=== PATIENT | female | born 1975 | race Caucasian/White ===

== ENCOUNTER 2016-04-29 10:48 | Emergency (ER) | payer SELFPAY ==
[~2016-04-29] VITALS: Ht 157.5 cm; Wt 105.0 kg
[~2016-04-29 10:48] MED LIST: NAPR500 PO; ZOFR4TAB3 PO
[2016-04-29 10:51] VITALS: BP 159/72; PULSE 56; RESP 14; TEMP 98; O2SAT 98
--- NOTE | 2016-04-29 11:16 | PD ---
HPI Chief Complaint: Flank/Kidney Pain Time Seen by Provider: 11:10 Travel History International Travel<30 days: No Contact w/Intl Traveler<30days: No Traveled to known affect area: No History of Present Illness HPI Patient is a 40-year-old female presenting to the emergency room for evaluation of right back pain that radiates around to her right flank, and down her right leg. Patient states the pain started a month ago however this morning she's had 2 episodes of diarrhea and has felt nauseated. The patient reports frequency, she denies any dysuria, vaginal discharge or odor. She denies any fevers, chills, shortness of breath, chest pain. Patient denies any new activities, injury, trauma to cause back pain. Patient has a history of cholecystectomy as well as laparoscopic surgery for uterine fibroids in the past. Patient rates her pain a 5 out of 10. PFSH Past Medical History Arthritis: Yes Blood Disorders: No Cerebrovascular Accident: Yes (age 25. 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, dilaudid, last use x3 YRS AGO: 2010) Allergies-Medications (Allergen,Severity, Reaction): Coded Allergies: No Known Allergies (Verified , 04/29/16) Reported Meds & Prescriptions Reported Meds & Active Scripts Active Naprosyn (Naproxen) 500 Mg Tab 500 Mg PO BID PRN Zofran ODT (Ondansetron HCl) 4 Mg Tab 4 Mg PO Q6 PRN May substitute, non-ODT form Review of Systems Except as stated in HPI: all other systems reviewed are Neg General / Constitutional: No: Fever, Chills HENT: No: Headaches Cardiovascular: No: Chest Pain or Discomfort Respiratory: No: Shortness of Breath Gastrointestinal: Positive: Nausea, Diarrhea (2 episodes today), Abdominal Pain (right lower quadrant), No: Vomiting Genitourinary: Positive: Frequency, No: Dysuria, Discharge, Vaginal Bleeding Musculoskeletal: Positive: Pain Physical Exam Narrative GENERAL: Obese, well-developed, alert female. Resting comfortably in no acute distress. SKIN: Warm and dry. HEAD: Atraumatic. Normocephalic. EYES: Pupils equal and round. No scleral icterus. No injection or drainage. ENT: No nasal bleeding or discharge. Mucous membranes pink and moist. NECK: Trachea midline. No JVD. CARDIOVASCULAR: Regular rate and rhythm. No murmur appreciated. RESPIRATORY: No accessory muscle use. Clear to auscultation. Breath sounds equal bilaterally. GASTROINTESTINAL: Abdomen soft, mildly tender in right lower quadrant, no rebound, no guarding, nondistended. Hepatic and splenic margins not palpable. Positive bowel sounds. MUSCULOSKELETAL: No obvious deformities. No clubbing. No cyanosis. No edema. Tenderness to palpation in right lower back and paraspinal musculature and lumbar region. Right leg left elicits pain and lower back. The pedal pulses, brisk less than 3 second capillary refill. NEUROLOGICAL: Awake and alert. No obvious cranial nerve deficits. Motor grossly within normal limits. Normal speech. PSYCHIATRIC: Appropriate mood and affect; insight and judgment normal. Data Data Last Documented VS Vital Signs Date Time Temp Pulse Resp B/P Pulse Ox O2 Delivery O2 Flow Rate FiO2 04/29/16 10:51 98.0 56 14 159/72 98 Room Air Orders Complete Blood Count With Diff (04/29/16 11:09) Comprehensive Metabolic Panel (04/29/16 11:09) Lipase (04/29/16 11:09) Urinalysis - C+S If Indicated (04/29/16 11:09) [facility] Medical Decision Making Medical Screen Exam Complete: Yes Emergency Medical Condition: Yes Interpretation(s) Vital Signs Date Time Temp Pulse Resp B/P Pulse Ox O2 Delivery O2 Flow Rate FiO2 04/29/16 10:51 98.0 56 14 159/72 98 Room Air Differential Diagnosis Appendicitis versus gastroenteritis versus sciatica versus UTI versus pyelonephritis versus other Narrative Course Patient is a 40-year-old female presenting with 1 month of right lower back pain that radiates down her right leg and wraps around to the right lower quadrant. New symptoms presenting this morning are nausea and diarrhea. Labs ordered and pending, urinalysis ordered. Patient has a chronic history of back pain, physical presentation appears consistent with sciatica however due to patient's complaint of frequency and flank pain urinalysis is ordered and pending. Patient's vital signs are stable. Care of patient will be assumed by provider in the medical pod when bed is available. Oliva Buchanan Apr 29, 2016 11:16
--- NOTE | 2016-04-29 11:33 | PD ---
Physical Exam Date Seen by Provider: Apr 29, 2016 Time Seen by Provider: 11:30 Narrative Patient was initially seen by ANH Dempsey. Please see her note for those details. 40-year-old female with PMH of chronic back pain, endometriosis, GERD, kidney stones presents to the ED for evaluation of one month history of right-sided flank pain. Patient rates the pain 5/10, described as constant, somewhat improved by drinking lemon juice. Accompanied by nausea. Patient denies vomiting. She sought treatment today due to 2 episodes of watery, nonbloody diarrhea. The patient endorses increased urinary urgency and frequency. She denies fevers, chills, dysuria, hematuria. She also complains of chronic right- sided back pain, radiating down the right leg. No alleviating or exacerbating factors reported. She denies numbness, tingling, weakness of the extremities. LMP 04/18/16, patient denies risk of . GENERAL: Well-nourished, well-developed, obese white female in no acute distress. SKIN: Warm and dry. HEAD: Normocephalic. EYES: No scleral icterus. No injection or drainage. NECK: Supple, trachea midline. No JVD or lymphadenopathy. CARDIOVASCULAR: Regular rate and rhythm without murmurs, gallops, or rubs. RESPIRATORY: Breath sounds clear and equal bilaterally. No accessory muscle use. GASTROINTESTINAL: Abdomen soft, protuberant, nondistended. Mildly tender to deep palpation of the right flank and right upper quadrant. Mild suprapubic tenderness to deep palpation. Unable to palpate liver or spleen edge. MUSCULOSKELETAL: No cyanosis, or edema. Strength 5/5 in dorsiflexion, plantar flexion, knee and hip flexion. No back pain elicited with straight leg raise. 2+ DP pulses. BACK: No obvious deformity. No CVA tenderness. Tender to palpation of the right -sided paraspinal musculature in the lumbar region. Data Data Last Documented VS Vital Signs Date Time Temp Pulse Resp B/P Pulse Ox O2 Delivery O2 Flow Rate FiO2 04/29/16 11:40 58 16 137/81 99 Room Air 04/29/16 10:51 98.0 Orders Complete Blood Count With Diff (04/29/16 11:09) Comprehensive Metabolic Panel (04/29/16 11:09) Lipase (04/29/16 11:09) Urinalysis - C+S If Indicated (04/29/16 11:09) Ondansetron Odt (Zofran Odt) (04/29/16 11:45) Ibuprofen (Motrin) (04/29/16 11:45) Ct Abd/Pel W Iv Contrast(Rout) (04/29/16 11:53) Iv Access Insert/Monitor (04/29/16 11:53) Ecg Monitoring (04/29/16 11:53) Oximetry (04/29/16 11:53) Sodium Chloride 0.9% Flush (Ns Flush) (04/29/16 12:00) Iohexol 350 Inj (Omnipaque 350 Inj) (04/29/16 13:00) Mandatory Outpatient Referral (04/29/16 13:52) Labs Laboratory Tests Test 04/29/16 11:20 White Blood Count 9.1 TH/MM3 Red Blood Count 4.69 MIL/MM3 Hemoglobin 12.6 GM/DL Hematocrit 38.4 % Mean Corpuscular Volume 81.9 FL Mean Corpuscular Hemoglobin 26.8 PG Mean Corpuscular Hemoglobin 32.8 % Concent Red Cell Distribution Width 14.0 % Platelet Count 251 TH/MM3 Mean Platelet Volume 9.6 FL Neutrophils (%) (Auto) 62.5 % Lymphocytes (%) (Auto) 28.5 % Monocytes (%) (Auto) 5.3 % Eosinophils (%) (Auto) 2.9 % Basophils (%) (Auto) 0.8 % Neutrophils # (Auto) 5.7 TH/MM3 Lymphocytes # (Auto) 2.6 TH/MM3 Monocytes # (Auto) 0.5 TH/MM3 Eosinophils # (Auto) 0.3 TH/MM3 Basophils # (Auto) 0.1 TH/MM3 CBC Comment DIFF FINAL Differential Comment Urine Color LIGHT-YELLOW Urine Turbidity CLEAR Urine pH 5.5 Urine Specific [place] 1.009 Urine Protein NEG mg/dL Urine Glucose (UA) NEG mg/dL Urine Ketones NEG mg/dL Urine Occult Blood TRACE Urine Nitrite NEG Urine Bilirubin NEG Urine Urobilinogen LESS THAN 2.0 MG/DL Urine Leukocyte Esterase TRACE Urine RBC LESS THAN 1 /hpf Urine WBC 1 /hpf Urine Squamous Epithelial 2 /hpf Cells Urine Bacteria RARE /hpf Microscopic Urinalysis Comment CULT NOT INDICATED Sodium Level 139 MEQ/L Potassium Level 4.0 MEQ/L Chloride Level 107 MEQ/L Carbon Dioxide Level 24.5 MEQ/L Anion Gap 8 MEQ/L Blood Urea Nitrogen 12 MG/DL Creatinine 0.86 MG/DL Estimat Glomerular Filtration 73 ML/MIN Rate Random Glucose 88 MG/DL Calcium Level 8.4 MG/DL Total Bilirubin 0.3 MG/DL Aspartate Amino Transf 9 U/L (AST/SGOT) Alanine Aminotransferase 17 U/L (ALT/SGPT) Alkaline Phosphatase 58 U/L Total Protein 7.1 GM/DL Albumin 3.5 GM/DL Lipase 171 U/L [facility] Supervised Visit with JAMEY: No Differential Diagnosis lumbago versus sciatica versus cystitis versus pyelonephritis versus nephroureterolithiasis versus João-Jordy Sammy syndrome versus other Narrative Course Patient was initially seen by ANH Dempsey. Please see her note for those details. 40-year-old female with PMH of chronic back pain, endometriosis, GERD, kidney stones presents to the ED for evaluation of one month history of right-sided flank pain. Constant, rated 5/10, improved by drinking lemon juice. Accompanied by nausea. 2 episodes of watery, nonbloody diarrhea today. The patient endorses increased urinary urgency and frequency. Complains of chronic right-sided back pain, radiating down the right leg. She denies fevers, chills , vomiting, dysuria, hematuria, numbness, tingling, weakness of the extremities. LMP 04/18/16, patient denies risk of . Vitals reviewed. Physical exam reveals an obese white female in no acute distress. Abdomen soft , protuberant, nondistended. Mildly tender to deep palpation of the right flank and right upper quadrant. Mild suprapubic tenderness to deep palpation. No weakness of the extremities. Negative straight leg raise. Some tenderness to palpation of the right-sided lumbar musculature. IV was established. Patient was placed on continuous monitoring. She was administered 4 mg Zofran ODT and 800 mg ibuprofen. CBC: no leukocytosis or anemia. CMP: unremarkable. Lipase: 171. UA: no culture indicated. CT of the abdomen and pelvis: CONCLUSION: 1. Abnormal head of the pancreas. This could be focal pancreatitis. Correlation is suggested. 2. There is no intrahepatic biliary ductal dilatation. 3. Scattered low density lesions in the liver that are probably cysts. 4. A large fibroid uterus. 5. There is no evidence for renal stones. 6. Pancreatitis would be a consideration radiographically. 7. There is a normal-appearing appendix in the right lower quadrant. All results per radiology read. I discussed the presentation, workup, plan of care with Dr. Dodd who is agreeable with discharge, outpatient GI follow up. I discussed the results of the workup with the patient. She's had no further episodes of diarrhea in the ED. Nausea is resolved. Patient does not currently have a PCP, is uninsured. Mandatory outpatient consult was placed with gastroenterology. She was provided with a copy of her CT results. Patient is instructed to treat symptomatically, follow up as planned. She indicated understanding of these instructions. She is amenable to plan of care. She stable discharged home. Diagnosis Primary Impression: Abdominal pain Qualified Code: R10.11 - Right upper quadrant abdominal pain Additional Impressions: Uterine fibroid Qualified Code: D25.9 - Uterine leiomyoma, unspecified location Anomaly of pancreas Referrals: Primary Care Physician Patient Instructions: Abdominal Pain (ED), General Instructions Additional Instruction: Rest, hydrate. Take Imodium over the counter as directed for continued diarrhea Mandatory outpatient follow-up has been placed for you. You can expect a phone call from the hospital or the doctor's office for an appointment. Follow-up with your primary care provider this week. Return to the ED for worsening of symptoms or any urgent or emergent medical condition. Scripts No Active Prescriptions or Reported Meds Disposition: 01 DISCHARGE HOME Condition: Stable Haydee Tolbert Apr 29, 2016 11:33
[2016-04-29 11:40] VITALS: BP 137/81; PULSE 58; RESP 16; O2SAT 99
[2016-04-29] MEDS ORDERED: ONDANSETRON ODT 4 MG TAB PO ONE (11:45)
[2016-04-29] MEDS ORDERED: IBUPROFEN 800 MG TAB PO ONE (11:45)
[2016-04-29 11:52] LABS: BACTERIA, URINE RARE /hpf; BLOOD, URINE TRACE (NEG); GLUCOSE,URINE NEG (NEG); KETONE, URINE NEG (NEG); NITRITE,URINE NEG (NEG); PH, URINE 5.5 (5.0-8.5); SQUAMOUS EPITHELIAL CELL URINE 2 /hpf (0-5); URINE COLOR LIGHT-YELLOW (YELLW/STRAW)
[2016-04-29 11:55] LABS: AUTOMATED NEUTROPHIL # 5.7 TH/MM3 (1.8-7.7); BASOPHIL # 0.1 TH/MM3 (0-0.2); BASOPHIL % 0.8 % (0.0-2.0); COMMENT (UR) CULT NOT INDICATED; CULTURE IF INDICATED CULT NOT INDICATED; EOSINOPHIL # 0.3 TH/MM3 (0-0.4); EOSINOPHIL % 2.9 % (0.0-4.0); HEMATOCRIT 38.4 % (35.0-46.0); HEMO FLAGS DIFF FINAL; LYMPH % 28.5 % (9.0-44.0); LYMPHOCYTE # 2.6 TH/MM3 (1.0-4.8); MEAN CELL VOLUME 81.9 FL (80.0-100.0); MEAN CORPUSCULAR HEMOGLOBIN 26.8 PG (27.0-34.0); MEAN CORPUSCULAR HGB CONC 32.8 % (32.0-36.0); MONO % 5.3 % (0.0-8.0); NEUT % 62.5 % (16.0-70.0); PLATELET COUNT 251 TH/MM3 (150-450); RED BLOOD COUNT 4.69 MIL/MM3 (4.00-5.30); WHITE BLOOD COUNT 9.1 TH/MM3 (4.0-11.0)
[2016-04-29] MEDS ORDERED: SODIUM CHLORIDE 0.9% FLUSH 5 ML FLUSH IVF PRN (12:00)
[2016-04-29 12:21] LABS: ANION GAP 8 MEQ/L (5-15); AST (GOT) 9 U/L (15-37); BICARBONATE 24.5 MEQ/L (21.0-32.0); BLOOD UREA NITROGEN 12 MG/DL (7-18); CHLORIDE 107 MEQ/L (98-107); GLOMERULAR FILTRATION RATE 73 ML/MIN (>89); SODIUM (NA) 139 MEQ/L (136-145)
[2016-04-29 12:24] LABS: ALKALINE PHOSPHATASE 58 U/L (45-117); ALT (GPT) 17 U/L (10-53); TOTAL BILIRUBIN ADULT 0.3 MG/DL (0.2-1.0)
[2016-04-29] MEDS ORDERED: IOHEXOL 350 MG/ML 10 ML VIAL (for RAD DIAG) IV ONE (13:00)
--- NOTE | 2016-04-29 13:32 | RADRPT ---
EXAM DATE/TIME: 04/29/2016 12:47 [facility] COMPARISON: CT ABDOMEN & PELVIS W CONTRAST, July 16, 2013, 15:42. INDICATIONS : Right flank and right lower quadrant pain. Nausea and vomiting. IV CONTRAST: 84 cc Omnipaque 350 (iohexol) IV ORAL CONTRAST: No oral contrast ingested. RADIATION DOSE: 6.90 CTDIvol (mGy) MEDICAL HISTORY : Gastroesophageal reflux disease. Cerebrovascular disease. SURGICAL HISTORY : Cholecystectomy. ENCOUNTER: Initial ACUITY: 1 month PAIN SCALE: 5/10 LOCATION: Right flank TECHNIQUE: Volumetric scanning of the abdomen and pelvis was performed. Using automated exposure control and ad justment of the mA and/or kV according to patient size, radiation dose was kept as low as reasonably achievable to obtain optimal diagnostic quality images. FINDINGS: Lung bases are clear. There are scattered low density lesions present in the liver that are probably cysts. The head of the pancreas is abnormal. There is no ascites or adenopathy. Large fibroid uterus is present in the pelvis. There is no free fluid or free air. There is symmetrical renal function. CONCLUSION: 1. Abnormal head of the pancreas. This could be focal pancreatitis. Correlation is suggested. 2. There is no intrahepatic biliary ductal dilatation. 3. Scattered low density lesions in the liver that are probably cysts. 4. A large fibroid uterus. 5. There is no evidence for renal stones. 6. Pancreatitis would be a consideration radiographically. 7. There is a normal-appearing appendix in the right lower quadrant. Fili Mcmillan MD FACR on April 29, 2016 at 13:24 Board Certified Radiologist. This report was verified electronically.
== END 2016-04-29 14:31 | disposition home or self-care (01) ==
LOC: NEPC 10:48
DX: R10.11 Right upper quadrant pain (principal); D25.9 Leiomyoma of uterus, unspecified; Q45.3 Other congenital malformations of pancreas and pancreatic duct; Z86.73 Personal history of transient ischemic attack (TIA), and cerebral infarction without residual deficits
CPT/HCPCS: 74177; 80053; 81001; 83690; 85025; 99284; Q9967

== ENCOUNTER 2016-05-04 16:59 | Emergency (ER) | payer SELFPAY ==
[~2016-05-04] VITALS: Ht 157.5 cm; Wt 109.0 kg
[2016-05-04 17:02] VITALS: BP 143/78; PULSE 68; RESP 16; TEMP 98; O2SAT 97
[2016-05-04] MEDS ORDERED: ALBUAER3 INH (17:13)
[2016-05-04] MEDS ORDERED: AZIT250T3 PO (17:13)
[2016-05-04] MEDS ORDERED: BENZ100 PO (17:13)
[2016-05-04] MEDS ORDERED: PRED20 PO (17:13)
--- NOTE | 2016-05-04 17:16 | PD ---
HPI Chief Complaint: Cold / Flu Symptoms Time Seen by Provider: 17:13 Travel History International Travel<30 days: No Contact w/Intl Traveler<30days: No Traveled to known affect area: No History of Present Illness HPI 40-year-old female that presents to the ED for evaluation of cold-like symptoms. Per patient she's had symptoms for the past 3-5 days. The patient denies family members sick at the house as well as her. Per patient and all of the family member symptoms getting better but she is not. Cough is productive. She denies any chest pain or shortness of breath. She states that she feels like she is wheezing as well but she has no history of asthma or smoking. No recent travel. No fevers chills or sweats. Patient's is having congestion and runny nose and the cough is productive. She has taken OTC meds with minimal relief. She denies any abdominal pain. No Nausea or vomiting. No allergies to medication. PFSH Past Medical History Hx Anticoagulant Therapy: No Arthritis: Yes Blood Disorders: No Cerebrovascular Accident: Yes (age 25. unk cause per pt) Diabetes: No Diminished Hearing: No GERD: Yes Musculoskeletal: Yes (CHRONIC BACK PAIN) Reproductive: Yes (uterine fibroids, ENDOMETRIOSIS) Immunizations Current: Yes Ulcer: Yes (GASTRIC) ?: Not : 1 Para: 0 Miscarriage: 1 Ovarian Cysts: Yes Dilation and Curettage (D&C): Yes (2005) Past Surgical History Cholecystectomy: Yes Gynecologic Surgery: Yes (D AND C 2005) Other Surgery: Yes (rhinoplasty) Social History Alcohol Use: No Tobacco Use: No Substance Use: No (IV drug use, dilaudid, last use x3 YRS AGO: 2010) Allergies-Medications (Allergen,Severity, Reaction): Coded Allergies: No Known Allergies (Verified , 05/04/16) Reported Meds & Prescriptions Reported Meds & Active Scripts Active No Active Prescriptions or Reported Medications Review of Systems General / Constitutional: No: Fever, Chills, Weight Gain, Weight Loss, Other Eyes: No: Diploplia, Blurred Vision, Photophobia, Drainage, Redness, Foreign Body Sensation, Pain, Tearing, Blind Spots, Visual changes, Blindness, Other HENT: Positive: Sore Throat, Rhinitis, Congestion, No: Headaches, Vertigo, Lightheadedness, Rhinorrhea, Nosebleed, Neck Stiffness, Neck Pain, Masses, Gingival Bleeding, Dental Difficulties, Ear Discharge, Earache, Other Cardiovascular: No: Chest Pain or Discomfort, Palpitations, Irregular Rhythm, Tachycardia, Diaphoresis, Syncope, Dyspnea on exertion, Varicosities, Edema, Cyanosis, Varicosities, Phlebitis, Claudication, Other Respiratory: Positive: Cough, Wheezing, No: Shortness of Breath, Sneezing, Orthopnea, Hemoptysis, Stridor, Night Sweats, Pleuritic Pain, Other Gastrointestinal: No: Nausea, Vomiting, Diarrhea, Abdominal Pain, Hematemesis, Hematochezia, Constipation, Changes in Bowel Habits, Indigestion, Dysphagia, Loss of Appetite, Other Genitourinary: No: Urgency, Frequency, Dysuria, Nocturia, Hematuria, Decreased Urinary Output, Oliguria, Hesitancy, Dribbling, Incontinence, Pelvic Pain, Flank Pain, Dyspareunia, Discharge, Dysmenorrhea, Menorrhagia, Metorrhagia, Vaginal Bleeding, Other Musculoskeletal: No: Myalgias, Arthralgias, Limited ROM, Weakness, Cramping, Edema, Pain, Atrophy, Other Skin: No Rash, No Itching, No Dryness, No Lumps, No Hives, No Change in Pigmentation, No Change in nails, No Alopecia, No Lesions, No Breast Lumps, No Breast Tenderness, No Breast Swelling, No Other Neurologic: No: Weakness, Dizziness, Syncope, Focal Abnormalities, Coordination Problem, Tremor, Ataxia, Headache, Change in Mentation, Slurred Speech, Paresthesia, Incontinence, Seizures, Sensory Disturbance, Other Psychiatric: No: Anxiety, Depression, Suicidal Ideations, Disorder of Thought, Mood Disorder, Substance Abuse, Homicidal Ideation, Other Endocrine: No: Heat Intolerance, Cold Intolerance, Polyuria, Polydipsia, Other Hematologic/Lymphatic: No: Easy Bruising, Lymph Node Enlargement, Other Physical Exam Narrative GENERAL: Well-nourished, well-developed patient in no apparent distress. SKIN: Warm and dry. HEAD: Atraumatic. Normocephalic. EYES: Pupils equal and round reactive to light and accommodation. No scleral icterus. No injection or drainage. ENT: No nasal bleeding or discharge. Mucous membranes pink and moist. TMs are clear with no sign of infection or perforation. No mastoid tenderness. Ear canals are intact bilaterally. No lymphadenopathy. Nostril mucosa is red and moist with clear mucus noted. No sinus tenderness to palpation noted. Tonsils are not enlarged or swollen. No ulvua Deviation. Tongue is midline. NECK: Trachea midline. No JVD. No meningeal signs noted CARDIOVASCULAR: Regular rate and rhythm. RESPIRATORY: No accessory muscle use. Clear to auscultation. Breath sounds equal bilaterally. GASTROINTESTINAL: Abdomen soft, non-tender, nondistended. Hepatic and splenic margins not palpable. MUSCULOSKELETAL: Extremities without clubbing, cyanosis, or edema. No obvious deformities. NEUROLOGICAL: Awake and alert. No obvious cranial nerve deficits. Motor grossly within normal limits. Five out of 5 muscle strength in the arms and legs. Normal speech. PSYCHIATRIC: Appropriate mood and affect; insight and judgment normal. Data Data Last Documented VS Vital Signs Date Time Temp Pulse Resp B/P Pulse Ox O2 Delivery O2 Flow Rate FiO2 05/04/16 17:02 98.0 68 16 143/78 97 MDM Medical Decision Making Medical Screen Exam Complete: Yes Emergency Medical Condition: Yes Medical Record Reviewed: Yes Differential Diagnosis Bronchitis versus sinusitis versus URI Narrative Course 40-year-old female that presents to the ED for evaluation of cold-like symptoms. Patient was properly examined and was found to have signs and symptoms consistent with appears to be acute bronchitis. Patient will be treated for this with azithromycin, albuterol inhaler, prednisone, Tessalon Perles. Told to take OTC medicines as needed. Follow with PCP. See ED for worsening symptoms. Diagnosis Primary Impression: Bronchitis Patient Instructions: General Instructions Additional Instructions: Motrin and Tylenol for pain and fever. You can use [id number] antihistamine as well as well as Mucinex as needed for runny nose and congestion. Cough drops for cough as needed. Drink plenty of fluids. Follow-up with PCP. See ED for worsening symptoms. Med/Other Pt SpecificInfo: Prescription(s) given Scripts Benzonatate (Tessalon Perles)100 Mg [id number] Mg PO TID PRN (COUGH) #20 CAP Prov:Oliver Ortiz MD 05/04/16 Albuterol 8.5 GM Inh (Proair Hfa 8.5 GM Inh)90 Mcg/Act Aer2 Puff INH Q4-6H PRN ( SHORTNESS OF BREATH) #1 INHALER 108 mcg/actuation Prov:Oliver Ortiz MD 05/04/16 Prednisone 20 Mg Tab20 Mg PO BID #10 TAB Prov:Oliver Ortiz MD 05/04/16 Azithromycin 250 Mg [id number] Mg PO DIRECTED #6 TAB Take 2 tabs (500 mg) on day 1 then 1 tab daily x 4 days. Prov:Oliver Ortiz MD 05/04/16 Disposition: 01 DISCHARGE HOME Condition: Stable Mohamud Brown May 04, 2016 17:16
== END 2016-05-04 17:43 | disposition home or self-care (01) ==
LOC: PHEFT 16:59
DX: J40 Bronchitis, not specified as acute or chronic (principal); M19.90 Unspecified osteoarthritis, unspecified site
CPT/HCPCS: 99283

== ENCOUNTER 2016-06-23 21:56 | Emergency (ER) | payer BC ==
[~2016-06-23] VITALS: Ht 157.5 cm; Wt 113.0 kg
[2016-06-23 22:08] VITALS: BP 130/82; PULSE 58; RESP 18; TEMP 98.8; O2SAT 98
--- NOTE | 2016-06-23 22:23 | PD ---
HPI Chief Complaint: Fall Time Seen by Provider: 22:15 Travel History International Travel<30 days: No Contact w/Intl Traveler<30days: No History of Present Illness HPI This is a 40-year-old female who presents to the emergency department having stepped off of a wood platform yesterday rolling her left ankle and subsequently trying to catch herself with her right foot and twisting her right ankle. She has had severe pain in her left ankle and moderate pain in her right ankle ever since the injury, constant, with no associated numbness or weakness. She woke up this morning and noticed her left ankle was very swollen and bruised. She says at the time of her fall she blacked out for several seconds but she didn't hit her head and she thinks it was just due to the pain. PFSH Past Medical History Hx Anticoagulant Therapy: No Arthritis: Yes Blood Disorders: No Cerebrovascular Accident: Yes (age 25. 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 Normocephalic. EYES: Pupils equal and round. No injection or drainage. ENT: Moist mucous membranes NECK: Trachea midline. CARDIOVASCULAR: Regular rate and rhythm. No murmur appreciated. 2+ bilateral DP pulses with normal capillary refill. RESPIRATORY: Clear to auscultation. Breath sounds equal bilaterally. GASTROINTESTINAL: Abdomen soft, non-tender, nondistended. MUSCULOSKELETAL: Swelling around the left lateral malleolus, tender to palpation along the posterior aspect of the lateral malleolus of the left ankle. Some swelling along the medial malleolus of the right ankle. No focal tenderness along either foot. NEUROLOGICAL: Awake and alert. No obvious cranial nerve deficits. Moving all extremities. PSYCHIATRIC: Appropriate mood and affect; insight and judgment normal. Data Data Last Documented VS Vital Signs Date Time Temp Pulse Resp B/P Pulse Ox O2 Delivery O2 Flow Rate FiO2 06/23/16 22:08 98.8 58 18 130/82 98 Orders Ankle, Complete ([id number]) (06/23/16 ) Ankle, Complete ([id number]) (06/23/16 ) [facility] Medical Decision Making Medical Screen Exam Complete: Yes Emergency Medical Condition: Yes Interpretation(s) Afebrile, mild bradycardia, normotensive X-ray right ankle: Soft tissue swelling with no acute fracture X-ray left ankle: Soft tissue swelling with no acute fracture Differential Diagnosis Ankle sprain, distal fibular fracture, distal tibial fracture Narrative Course This is a 40-year-old female who presents to the emergency department having injured both of her ankles yesterday and a mechanical fall. She has effusions of both ankles with a large amount of bruising and swelling involving the left ankle. She is a normal neurovascular exam. X-rays were negative for fracture. Patient was discharged home and instructed to follow-up with orthopedics if symptoms do not improve in one week. Diagnosis Primary Impression: Ankle sprain Qualified Code: S93.402A - Sprain of left ankle, unspecified ligament, initial encounter Referrals: Roly Hodge MD Patient Instructions: General Instructions Additional Instructions: If you develop severe pain in the foot or ankle, numbness, weakness, or coolness of your foot return to the emergency department immediately. - Use crutches as needed and rest your ankle until your pain improves. - Apply ice to your ankle for 20 minutes every 3 hours for the first 2 days. - Use an janet wrap to minimize swelling. - Keep your ankle elevated when you are resting. - Use ibuprofen as needed for pain. - Gradually start exercises with your ankle, moving it upward, downward and in small circles. Perform 20 clockwise and 20 counterclockwise circles twice daily. Med/Other Pt SpecificInfo: No Change to Meds Scripts No Active Prescriptions or Reported Meds Disposition: DISCHARGE HOME Condition: Stable Belinda Hall MD Jun 23, 2016 22:23
--- NOTE | 2016-06-23 23:05 | RADHPO ---
EXAM DATE/TIME: 06/23/2016 22:53 [facility] COMPARISON: No previous studies available for comparison. INDICATIONS : Fall. Right ankle pain. MEDICAL HISTORY : None. SURGICAL HISTORY : None. ENCOUNTER: Initial ACUITY: 1 day PAIN SCORE: 6/10 LOCATION: Right lateral FINDINGS: Three view exam was performed of the right ankle. The bony structures are in normal alignment. No e vidence of fracture or dislocation. There is soft tissue swelling, greater along the medial aspect. The ankle mortise is intact. No radiopaque foreign bodies are seen. Bony mineralization is normal. CONCLUSION: Soft tissue swelling without fracture Fabrizio Porras MD on June 23, 2016 at 23:02 Board Certified Radiologist. This report was verified electronically.
--- NOTE | 2016-06-23 23:06 | RADHPO ---
EXAM DATE/TIME: 06/23/2016 22:56 [facility] COMPARISON: No previous studies available for comparison. INDICATIONS : Fall. Left ankle pain. MEDICAL HISTORY : None. SURGICAL HISTORY : None. ENCOUNTER: Initial ACUITY: 1 day PAIN SCORE: 8/10 LOCATION: Left lateral FINDINGS: Three view exam was performed of the left ankle. The bony structures are in normal alignment. No ev idence of fracture or dislocation. There is soft tissue swelling. The ankle mortise is intact. No r adiopaque foreign bodies are seen. Bony mineralization is normal. Small plantar calcaneal spur. CONCLUSION: Soft tissue swelling without fracture. Small plantar calcaneal spur. Fabrizio Porras MD on June 23, 2016 at 23:04 Board Certified Radiologist. This report was verified electronically.
== END 2016-06-23 23:28 | disposition home or self-care (01) ==
LOC: PHED 21:56
DX: S93.402A Sprain of unspecified ligament of left ankle, initial encounter (principal); M25.571 Pain in right ankle and joints of right foot; W19.XXXA Unspecified fall, initial encounter
CPT/HCPCS: 73610; 99283

== ENCOUNTER 2016-07-15 16:24 | Emergency (ER) | payer BC ==
[~2016-07-15] VITALS: Ht 160 cm; Wt 108.5 kg
[2016-07-15 16:36] VITALS: BP 157/92; PULSE 75; RESP 16; TEMP 98.2; O2SAT 96
--- NOTE | 2016-07-15 17:07 | PD ---
HPI Chief Complaint: Musculoskeletal Complaint Time Seen by Provider: 17:07 Travel History International Travel<30 days: No Contact w/Intl Traveler<30days: No Traveled to known affect area: No History of Present Illness HPI 40-year-old female presents the emergency department with a week history of ongoing left foot pain and swelling. Patient states she fell and tripped ago and had x-rays done of her ankle, but not her foot. She continues to have pain janet and dorsum of the foot especially first thing in the morning when she gets out of bed. She states no ankle or knee pain at this time. Patient has been using ice but no other medications. No known drug allergies. PFSH Past Medical History Hx Anticoagulant Therapy: No Arthritis: Yes Blood Disorders: No Cerebrovascular Accident: Yes (age 25. unk cause per pt) Diabetes: No Diminished Hearing: No GERD: Yes Musculoskeletal: Yes (CHRONIC BACK PAIN) Reproductive: Yes (uterine fibroids, ENDOMETRIOSIS) Immunizations Current: Yes Ulcer: Yes (GASTRIC) Tetanus Vaccination: < 5 Years Influenza Vaccination: Yes ?: Not LMP: Ended yesterday : 1 Para: 0 Miscarriage: 1 Ovarian Cysts: Yes Dilation and Curettage (D&C): Yes (2005) Past Surgical History Cholecystectomy: Yes Gynecologic Surgery: Yes (D AND C 2005) Other Surgery: Yes (rhinoplasty) Social History Alcohol Use: No Tobacco Use: No Substance Use: No (IV drug use, dilaudid, last use x3 YRS AGO: 2010 (Denies 07/15)) Allergies-Medications (Allergen,Severity, Reaction): Coded Allergies: No Known Allergies (Verified , 07/15/16) Reported Meds & Prescriptions Reported Meds & Active Scripts Active No Active Prescriptions or Reported Medications Review of Systems Except as stated in HPI: all other systems reviewed are Neg General / Constitutional: No: Fever Eyes: No: Visual changes HENT: No: Headaches Cardiovascular: No: Chest Pain or Discomfort Respiratory: No: Shortness of Breath Gastrointestinal: No: Abdominal Pain Genitourinary: No: Dysuria Musculoskeletal: Positive: Arthralgias, Limited ROM, Pain (see history present illness.) Skin: No Rash Neurologic: No: Weakness Psychiatric: No: Depression Endocrine: No: Polydipsia Hematologic/Lymphatic: No: Easy Bruising Physical Exam Narrative GENERAL: Patient appears in no acute distress. SKIN: Warm and dry. Normal color. Normal turgor. No ecchymosis. No abrasions. No open wounds. No rash. HEAD: Atraumatic. Normocephalic. EYES: Pupils equal and round. No scleral icterus. No injection or drainage. ENT: No nasal bleeding or discharge. Mucous membranes pink and moist. NECK: Trachea midline. No JVD. CARDIOVASCULAR: Regular rate and rhythm. RESPIRATORY: No accessory muscle use. Clear to auscultation. Breath sounds equal bilaterally. GASTROINTESTINAL: Abdomen soft, non-tender, nondistended. Hepatic and splenic margins not palpable. MUSCULOSKELETAL: Extremities without clubbing, cyanosis, or edema. No obvious deformities. Patient seems to have mild swelling over the dorsum of the left foot. She has pain specifically at the base of the heel as well as along the dorsum of the foot without obvious signs of deformity. NEUROLOGICAL: Awake and alert. No obvious cranial nerve deficits. Motor grossly within normal limits. Five out of 5 muscle strength in the arms and legs. Normal speech. PSYCHIATRIC: Appropriate mood and affect; insight and judgment normal. Data Data Last Documented VS Vital Signs Date Time Temp Pulse Resp B/P Pulse Ox O2 Delivery O2 Flow Rate FiO2 07/15/16 16:36 98.2 75 16 157/92 96 Orders Foot, Complete ([id number]) (07/15/16 17:12) [facility] Medical Decision Making Medical Screen Exam Complete: Yes Emergency Medical Condition: Yes Medical Record Reviewed: Yes Differential Diagnosis Left foot sprain. Fracture. Plantar fascia is. Narrative Course Patient is medically stable at time of exam. X-rays of the left foot are ordered. X-ray shows no acute fracture dislocation per radiologist. Patient is felt to have plantar fasciitis. Patient will be treated with ibuprofen 600 mg 4 times a day #40. Patient can take extra strength Tylenol as well as needed for pain Patient is use ice and stretching as discussed. Proper footwear is very important as discussed. Patient follow-up with her primary care physician or case operator if symptoms continue or worsen as discussed. Diagnosis Primary Impression: Plantar fasciitis of left foot Referrals: [facility] Primary Care Physician Patient Instructions: General Instructions, Plantar Fasciitis (ED), Plantar Fasciitis Exercises (GEN) Additional Instructions: X-ray shows no acute fracture dislocation per radiologist. Patient is felt to have plantar fasciitis. Patient will be treated with ibuprofen 600 mg 4 times a day #40. Patient can take extra strength Tylenol as well as needed for pain Patient is use ice and stretching as discussed. Proper footwear is very important as discussed. Patient follow-up with her primary care physician or case operator if symptoms continue or worsen as discussed. Med/Other Pt SpecificInfo: Prescription(s) given Scripts No Active Prescriptions or Reported Meds Disposition: 01 DISCHARGE HOME Condition: Stable Brad Galo July 15, 2016 17:07
--- NOTE | 2016-07-15 18:01 | RADHPO ---
EXAM DATE/TIME: 07/15/2016 17:47 [facility] COMPARISON: No previous studies available for comparison. INDICATIONS : Fall 3 weeks ago, left metatarsal and plantar foot pain. MEDICAL HISTORY : None. SURGICAL HISTORY : None. ENCOUNTER: Initial ACUITY: 3 weeks PAIN SCORE: 7/10 LOCATION: Left foot metatarsal and plantar FINDINGS: Three view examination of the left foot demonstrates no soft tissue swelling, dislocation, or fractur e. The tarsal bones appear intact. The interphalangeal and metatarsophalangeal joints are intact. The calcaneus is intact. Bony mineralization is normal. CONCLUSION: Unremarkable examination of the left foot. Edilson Lewis Jr., MD on July 15, 2016 at 17:59 Board Certified Radiologist. This report was verified electronically.
== END 2016-07-15 18:45 | disposition home or self-care (01) ==
LOC: PHEFT 16:24
DX: M72.2 Plantar fascial fibromatosis (principal)
CPT/HCPCS: 73630; 99283

== ENCOUNTER 2016-08-27 06:11 | Emergency (ER) | payer SELFPAY ==
[~2016-08-27] VITALS: Ht 162.6 cm; Wt 108.4 kg
[2016-08-27 06:35] VITALS: BP 132/65; PULSE 57; RESP 14; TEMP 98.1; O2SAT 96
[2016-08-27] MEDS ORDERED: SODIUM CHLOR 0.9% 1000 ML INJ 1,000 ML IV SCH (07:43)
[2016-08-27] MEDS ORDERED: KETOROLAC TROMETHAMINE 30 MG/ML (IVP) VIAL IVP ONE (07:45)
[2016-08-27] MEDS ORDERED: ONDANSETRON HCL 4 MG/2 ML VIAL IVP ONE (07:45)
[2016-08-27] MEDS ORDERED: SODIUM CHLORIDE 0.9% FLUSH 10 ML FLUSH IV FLUSH PRN (07:45)
--- NOTE | 2016-08-27 08:04 | PD ---
HPI Chief Complaint: Abdominal Pain Time Seen by Provider: 07:39 Travel History International Travel<30 days: No Contact w/Intl Traveler<30days: No Traveled to known affect area: No History of Present Illness HPI 40-year-old female presents with central abdominal pain that is been present over the past couple of days. She states she's also been having nonbloody emesis. She denies other concurrent complaints. She states she had something similar a couple months ago and had inflammation to the pancreas as her diagnoses. She states she went home. She denies specific modifying factors. She states her last menstrual cycle was a couple weeks ago and has been regular. Quality of pain is crampy. Severity is moderate. PFSH Past Medical History Hx Anticoagulant Therapy: No Arthritis: Yes Blood Disorders: No Cerebrovascular Accident: Yes (age 25. unk cause per pt) Diabetes: No Diminished Hearing: No GERD: Yes Musculoskeletal: Yes (CHRONIC BACK PAIN) Reproductive: Yes (uterine fibroids, ENDOMETRIOSIS) Immunizations Current: Yes Ulcer: Yes (GASTRIC) Influenza Vaccination: Yes ?: Not LMP: 2 WEEKS AGO : 1 Para: 0 Miscarriage: 1 Ovarian Cysts: Yes Dilation and Curettage (D&C): Yes (2005) Past Surgical History Cholecystectomy: Yes Gynecologic Surgery: Yes (D AND C 2005) Other Surgery: Yes (rhinoplasty) Social History Alcohol Use: No Tobacco Use: No Substance Use: No (IV drug use, dilaudid, last use x3 YRS AGO: 2010 (Denies 07/15)) Allergies-Medications (Allergen,Severity, Reaction): Coded Allergies: No Known Allergies (Verified , 08/27/16) Reported Meds & Prescriptions Reported Meds & Active Scripts Active Zofran Odt (Ondansetron Odt) 4 Mg Tab 4 Mg SL Q6HR PRN Macrodantin (Nitrofurantoin Macrocrystal) 100 Mg Cap 100 Mg PO BID 3 Days Review of Systems Except as stated in HPI: all other systems reviewed are Neg Physical Exam Narrative GENERAL: Well-nourished, well-developed patient. Well-appearing SKIN: Warm and dry. HEAD: Normocephalic and atraumatic. EYES: No injection or drainage. ENT: No nasal drainage noted. NECK: Supple, trachea midline. CARDIOVASCULAR: Regular rate and rhythm RESPIRATORY: Breath sounds equal bilaterally. No accessory muscle use. GASTROINTESTINAL: Abdomen soft, tender periumbilically, nondistended. No rebound or guarding NEUROLOGICAL: Awake and alert. Motor and sensory grossly within normal limits. Normal speech. Data Data Last Documented VS Vital Signs Date Time Temp Pulse Resp B/P Pulse Ox O2 Delivery O2 Flow Rate FiO2 08/27/16 10:32 54 18 106/74 99 08/27/16 08:41 Room Air 08/27/16 06:35 98.1 Orders Complete Blood Count With Diff (08/27/16 07:43) Comprehensive Metabolic Panel (08/27/16 07:43) Lipase (08/27/16 07:43) Urinalysis - C+S If Indicated (08/27/16 07:43) Ct Abd/Pel W Iv Contrast(Rout) (08/27/16 07:43) Iv Access Insert/Monitor (08/27/16 07:43) Ecg Monitoring (08/27/16 07:43) Oximetry (08/27/16 07:43) Ondansetron Inj (Zofran Inj) (08/27/16 07:45) Sodium Chlor 0.9% 1000 Ml Inj (Ns 1000 M (08/27/16 07:43) Sodium Chloride 0.9% Flush (Ns Flush) (08/27/16 07:45) Ketorolac Inj (Toradol Inj) (08/27/16 07:45) Ed Urine Pregnancytest Poc (08/27/16 07:43) Urine Culture (08/27/16 07:55) Iohexol 350 Inj (Omnipaque 350 Inj) (08/27/16 09:42) Labs Laboratory Tests Test 08/27/16 08/27/16 07:55 08:30 Urine Collection Type CLEAN CATCH Urine Color YELLOW Urine Turbidity SLIGHT Urine pH 6.0 Urine Specific [place] 1.028 Urine Protein TRACE mg/dL Urine Glucose (UA) NEG mg/dL Urine Ketones NEG mg/dL Urine Occult Blood SMALL Urine Nitrite NEG Urine Bilirubin NEG Urine Leukocyte Esterase SMALL Urine RBC 10-14 /hpf Urine WBC 50-99 /hpf Urine WBC Clumps FEW Urine Squamous Epithelial > 8 /hpf Cells Urine Bacteria FEW /hpf Microscopic Urinalysis Comment CULTURE INDICATED Urine Collection Time 07:55 White Blood Count 14.6 TH/MM3 Red Blood Count 4.72 MIL/MM3 Hemoglobin 12.3 GM/DL Hematocrit 37.9 % Mean Corpuscular Volume 80.4 FL Mean Corpuscular Hemoglobin 26.1 PG Mean Corpuscular Hemoglobin 32.5 % Concent Red Cell Distribution Width 14.6 % Platelet Count 213 TH/MM3 Mean Platelet Volume 9.5 FL Neutrophils (%) (Auto) 78.0 % Lymphocytes (%) (Auto) 15.5 % Monocytes (%) (Auto) 4.2 % Eosinophils (%) (Auto) 0.9 % Basophils (%) (Auto) 1.4 % Neutrophils # (Auto) 11.4 TH/MM3 Lymphocytes # (Auto) 2.3 TH/MM3 Monocytes # (Auto) 0.6 TH/MM3 Eosinophils # (Auto) 0.1 TH/MM3 Basophils # (Auto) 0.2 TH/MM3 CBC Comment DIFF FINAL Differential Comment Sodium Level 141 MEQ/L Potassium Level 3.7 MEQ/L Chloride Level 107 MEQ/L Carbon Dioxide Level 24.3 MEQ/L Anion Gap 10 MEQ/L Blood Urea Nitrogen 11 MG/DL Creatinine 0.78 MG/DL Estimat Glomerular Filtration 82 ML/MIN Rate Random Glucose 98 MG/DL Calcium Level 8.7 MG/DL Total Bilirubin 0.3 MG/DL Aspartate Amino Transf 10 U/L (AST/SGOT) Alanine Aminotransferase 16 U/L (ALT/SGPT) Alkaline Phosphatase 56 U/L Total Protein 6.9 GM/DL Albumin 3.6 GM/DL Lipase 178 U/L [facility] Medical Decision Making Medical Screen Exam Complete: Yes Emergency Medical Condition: Yes Medical Record Reviewed: Yes (pmh confirmed, recent visit reviewed) Interpretation(s) CBC & BMP Diagram 08/27/16 08:30 Last 24 hours Impressions Abdomen/Pelvis CT 08/27/16 0743 Signed Impressions: Service Date/Time: Saturday, August 27, 2016 09:26 - CONCLUSION: 1. Enlarged fibroid uterus. 2. Multiple stable low density lesions within the liver consistent with probable hepatic cysts. 3. Complex left ovarian cystic lesion measuring 4.3 x 2.5 cm. 4. Multiple renal cortical scars bilaterally. 5. Bilateral pars defects at L5. 6. Minimal ascites within the right upper quadrant and pelvis. Ke Wise MD given copy of ct scan ua will treat given symptoms Differential Diagnosis Gastroenteritis, gastritis, pancreatitis, stone, cyst Narrative Course Will check blood work, urinalysis, CT scan abdominal pelvis and dose with Zofran and Toradol and IV fluids and reevaluate patient without iv access after mulitple sticks, right ej with blood noted but unable to thread on one attempt, able to get left sided ej on one stick and flushed after bloodwork checked On repeat abdominal exam patient without left lower quadrant pain. Mild periumbilical. Patient denies any new complaints and states that they are feeling better. no emesis here, all questions answered. Patient knows that follow up is incumbent on them and to return to the emergency room immediately if new or worsening symptoms develop. Patient given strict return precautions, vitals reviewed and are normal, agrees to further workup as an outpatient with gynecology without further testing here Diagnosis Primary Impression: Abdominal pain Qualified Code: R10.33 - Periumbilical abdominal pain Additional Impression: Ovarian cyst Patient Instructions: General Instructions Additional Instructions: return as needed, follow with gynecology in the next 1-2 days, tylenol as needed Med/Other Pt SpecificInfo: Prescription(s) given Scripts Ondansetron Odt (Zofran Odt)4 Mg Tab4 Mg SL Q6HR PRN (Nausea/Vomiting) #10 TAB Prov:Chasity Garcia MD 08/27/16 Nitrofurantoin Macrocrystal (Macrodantin)100 Mg Ogh357 Mg PO BID 3 Days Prov:Chasity Garcia MD 08/27/16 Disposition: 01 DISCHARGE HOME Condition: Stable Chasity Garcia MD Aug 27, 2016 08:03
[2016-08-27 08:12] VITALS: O2SAT 97
[2016-08-27 08:18] LABS: BLOOD, URINE SMALL (NEG); GLUCOSE,URINE NEG (NEG); KETONE, URINE NEG (NEG); NITRITE,URINE NEG (NEG)
[2016-08-27 08:41] VITALS: BP 117/67; PULSE 52; RESP 18; O2SAT 98
[2016-08-27 08:41] LABS: AUTOMATED NEUTROPHIL # 11.4 TH/MM3 (1.8-7.7); BASOPHIL # 0.2 TH/MM3 (0-0.2); BASOPHIL % 1.4 % (0.0-2.0); EOSINOPHIL # 0.1 TH/MM3 (0-0.4); EOSINOPHIL % 0.9 % (0.0-4.0); HEMATOCRIT 37.9 % (35.0-46.0); LYMPH % 15.5 % (9.0-44.0); LYMPHOCYTE # 2.3 TH/MM3 (1.0-4.8); MEAN CELL VOLUME 80.4 FL (80.0-100.0); MEAN CORPUSCULAR HEMOGLOBIN 26.1 PG (27.0-34.0); MEAN CORPUSCULAR HGB CONC 32.5 % (32.0-36.0); MONO % 4.2 % (0.0-8.0); PLATELET COUNT 213 TH/MM3 (150-450); RED BLOOD COUNT 4.72 MIL/MM3 (4.00-5.30); RED CELL DISTRIBUTION WIDTH 14.6 % (11.6-17.2); WHITE BLOOD COUNT 14.6 TH/MM3 (4.0-11.0)
[2016-08-27 08:45] LABS: HEMO FLAGS DIFF FINAL
[2016-08-27 08:48] LABS: METHOD OF COLLECTION CLEAN CATCH; URINE COLOR YELLOW (YELLW/STRAW)
[2016-08-27 08:49] LABS: BACTERIA, URINE FEW /hpf; COMMENT (UR) CULTURE INDICATED; CULTURE IF INDICATED CULTURE INDICATED; SQUAMOUS EPITHELIAL CELL URINE > 8 /hpf (0-5)
[2016-08-27 08:51] LABS: CHLORIDE 107 MEQ/L (98-107); POTASSIUM 3.7 MEQ/L (3.5-5.1); SODIUM (NA) 141 MEQ/L (136-145)
[2016-08-27 08:57] LABS: ANION GAP 10 MEQ/L (5-15); BICARBONATE 24.3 MEQ/L (21.0-32.0); BLOOD UREA NITROGEN 11 MG/DL (7-18)
[2016-08-27 09:00] LABS: ALT (GPT) 16 U/L (10-53); AST (GOT) 10 U/L (15-37); GLOMERULAR FILTRATION RATE 82 ML/MIN (>89)
[2016-08-27 09:01] LABS: TOTAL BILIRUBIN ADULT 0.3 MG/DL (0.2-1.0)
[2016-08-27 09:03] LABS: ALKALINE PHOSPHATASE 56 U/L (45-117)
[2016-08-27] MEDS ORDERED: IOHEXOL 350 MG/ML 10 ML VIAL (for RAD DIAG) IV ONE (09:42)
--- NOTE | 2016-08-27 10:05 | RADHPO ---
EXAM DATE/TIME: 08/27/2016 09:26 [facility] COMPARISON: CT ABDOMEN & PELVIS W CONTRAST, July 16, 2013, 15:42. CT ABDOMEN & PELVIS W CONTRAST, April 29 17, 12:47. INDICATIONS : Mid abdominal pain. IV CONTRAST: 95 cc Omnipaque 350 (iohexol) IV ORAL CONTRAST: No oral contrast ingested. RADIATION DOSE: 22.32 CTDIvol (mGy) MEDICAL HISTORY : Cerebrovascular disease. Gastroesophageal reflux disease. Endometriosis. SURGICAL HISTORY : Cholecystectomy. ENCOUNTER: Initial ACUITY: 1 day PAIN SCALE: 5/10 LOCATION: Abdomen TECHNIQUE: Volumetric scanning of the abdomen and pelvis was performed. Using automated exposure control and ad justment of the mA and/or kV according to patient size, radiation dose was kept as low as reasonably achievable to obtain optimal diagnostic quality images. FINDINGS: There are scattered low density lesions within the liver which are stable consistent with probable he patic cysts. A tiny collection of ascites is noted along the inferior aspect of the right lobe of the liver. No nuvia iary ductal dilatation is noted. The gallbladder has been resected. The spleen is normal. The pancreas is also normal. The adrenal glands are normal bilaterally. There are stable focal renal cortical scars bilaterally. No solid renal mass or hydronephrosis sis noted. The abdominal aorta and inferior vena cava are unremarkable. There is no paraaortic, retroperitoneal or mesenteric lymphadenopathy. The uterus is enlarged and demonstrates s table small fibroids. There is a small collection of free fluid within the cul-de-sac. There is a complex left ovarian cystic lesion measuring 4.3 x 2.5 cm. No pelvic lymphadenopathy is noted. The urinary bladder is unremarka ble. Bilateral pars defects are noted at L5. Degenerative disc disease is noted at L4-5 and L5-S1. The visualized lung bases are clear. CONCLUSION: 1. Enlarged fibroid uterus. 2. Multiple stable low density lesions within the liver consistent with probable hepatic cysts. 3. Complex left ovarian cystic lesion measuring 4.3 x 2.5 cm. 4. Multiple renal cortical scars bilaterally. 5. Bilateral pars defects at L5. 6. Minimal ascites within the right upper quadrant and pelvis. Ke Wise MD on August 27, 2016 at 9:47 Board Certified Radiologist. This report was verified electronically.
[2016-08-27] MEDS ORDERED: ZOFR4TAB3 SL (10:11)
[2016-08-27] MEDS ORDERED: MACR100C3 PO (10:11)
[2016-08-27 10:32] VITALS: BP 106/74
== END 2016-08-27 10:35 | disposition home or self-care (01) ==
LOC: PHED 06:11
DX: R10.33 Periumbilical pain (principal); N83.202 Unspecified ovarian cyst, left side; D25.9 Leiomyoma of uterus, unspecified; K21.9 Gastro-esophageal reflux disease without esophagitis
CPT/HCPCS: 74177; 80053; 81001; 83690; 84703; 85025; 87086; 96361; 96374; 96375; 99285; J1885; J2405; J7030; Q9967

== ENCOUNTER 2017-03-29 11:42 | Emergency (ER) | payer BC ==
[~2017-03-29] VITALS: Ht 157.5 cm; Wt 120.0 kg
[~2017-03-29 11:42] MED LIST changes: +MACR100C3 PO; -NAPR500 PO; -ZOFR4TAB3 PO; +ZOFR4TAB3 SL
[2017-03-29 11:45] VITALS: BP 120/74; PULSE 57; RESP 14; TEMP 97.6; O2SAT 98
[2017-03-29 12:54] LABS: BACTERIA, URINE FEW /hpf; BILIRUBIN, URINE NEG (NEG); BLOOD, URINE MOD (NEG); GLUCOSE,URINE NEG (NEG); KETONE, URINE NEG (NEG); MUCUS URINE FEW /lpf (OCC); NITRITE,URINE NEG (NEG); SQUAMOUS EPITHELIAL CELL URINE 10 /hpf (0-5); TRANSITIONAL EPI CELLS, URINE 1 /hpf; URINE COLOR YELLOW (YELLW/STRAW); URINE LEUKOCYTE ESTERASE SMALL (NEG)
[2017-03-29] MEDS ORDERED: SODIUM CHLORIDE 0.9% FLUSH 10 ML FLUSH IV FLUSH PRN (13:15)
[2017-03-29 13:32] VITALS: O2SAT 97
[2017-03-29 13:51] LABS: AUTOMATED NEUTROPHIL # 8.6 TH/MM3 (1.8-7.7); BASOPHIL # 0.1 TH/MM3 (0-0.2); BASOPHIL % 0.8 % (0.0-2.0); EOSINOPHIL # 0.3 TH/MM3 (0-0.4); EOSINOPHIL % 2.7 % (0.0-4.0); HEMATOCRIT 37.9 % (35.0-46.0); HEMOGLOBIN 12.4 GM/DL (11.6-15.3); LYMPH % 17.3 % (9.0-44.0); MEAN CELL VOLUME 82.9 FL (80.0-100.0); MEAN CORPUSCULAR HEMOGLOBIN 27.2 PG (27.0-34.0); MEAN CORPUSCULAR HGB CONC 32.8 % (32.0-36.0); MEAN PLATELET VOLUME 9.2 FL (7.0-11.0); MONO % 4.7 % (0.0-8.0); MONOCYTE # 0.5 TH/MM3 (0-0.9); NEUT % 74.5 % (16.0-70.0); PLATELET COUNT 227 TH/MM3 (150-450); RED BLOOD COUNT 4.58 MIL/MM3 (4.00-5.30); RED CELL DISTRIBUTION WIDTH 14.4 % (11.6-17.2); WHITE BLOOD COUNT 11.5 TH/MM3 (4.0-11.0)
[2017-03-29 14:07] LABS: ALBUMIN 3.4 GM/DL (3.4-5.0); ALT (GPT) 20 U/L (10-53); AST (GOT) 13 U/L (15-37); BICARBONATE 26.3 MEQ/L (21.0-32.0); BLOOD UREA NITROGEN 17 MG/DL (7-18); CALCIUM 8.4 MG/DL (8.5-10.1); CHLORIDE 105 MEQ/L (98-107); CREATININE 0.77 MG/DL (0.50-1.00); GLOMERULAR FILTRATION RATE 83 ML/MIN (>89); GLUCOSE,RANDOM 80 MG/DL (74-106); LIPASE 205 U/L (73-393); SODIUM (NA) 138 MEQ/L (136-145)
[2017-03-29 14:09] LABS: ALKALINE PHOSPHATASE 64 U/L (45-117); TOTAL BILIRUBIN ADULT 0.2 MG/DL (0.2-1.0); TOTAL PROTEIN 7.3 GM/DL (6.4-8.2)
--- NOTE | 2017-03-29 14:12 | PD ---
HPI Chief Complaint: Abdominal Pain Time Seen by Provider: 12:38 Travel History International Travel<30 days: No Contact w/Intl Traveler<30days: No Traveled to known affect area: No History of Present Illness HPI The patient is 41 years old and has had intermittent right upper quadrant abdominal pain for months at least. Today she has the same pain. She denies abnormal vaginal discharge or bleeding. Pain comes and goes however it seems to be worse at night. No diarrhea or constipation. No nausea or vomiting. Patient has a history of cholecystectomy. No additional complaint today. PFSH Past Medical History Hx Anticoagulant Therapy: No Arthritis: Yes Blood Disorders: No Cerebrovascular Accident: Yes (age 25. unk cause per pt) Diabetes: No Diminished Hearing: No GERD: Yes Musculoskeletal: Yes (CHRONIC BACK PAIN) Reproductive: Yes (uterine fibroids, ENDOMETRIOSIS) Immunizations Current: Yes Ulcer: Yes (GASTRIC) ?: Not : 1 Para: 0 Miscarriage: 1 Ovarian Cysts: Yes Dilation and Curettage (D&C): Yes (2005) Past Surgical History Cholecystectomy: Yes Gynecologic Surgery: Yes (D AND C 2005) Other Surgery: Yes (rhinoplasty) Social History Alcohol Use: No Tobacco Use: No Substance Use: No (IV drug use, dilaudid, last use x3 YRS AGO: 2010 (Denies 07/15)) Allergies-Medications (Allergen,Severity, Reaction): Coded Allergies: No Known Allergies (Verified , 08/27/16) Reported Meds & Prescriptions Reported Meds & Active Scripts Active Zofran Odt (Ondansetron Odt) 4 Mg Tab 4 Mg SL Q6HR PRN Macrodantin (Nitrofurantoin Macrocrystal) 100 Mg Cap 100 Mg PO BID 3 Days Review of Systems Except as stated in HPI: all other systems reviewed are Neg General / Constitutional: No: Fever Physical Exam Narrative GENERAL: 41-year-old female well-nourished well-developed, BMI is 48 SKIN: Warm and dry. HEAD: Atraumatic. Normocephalic. EYES: Pupils equal and round. No scleral icterus. No injection or drainage. ENT: No nasal bleeding or discharge. Mucous membranes pink and moist. NECK: Trachea midline. No JVD. CARDIOVASCULAR: Regular rate and rhythm. RESPIRATORY: No accessory muscle use. Clear to auscultation. Breath sounds equal bilaterally. GASTROINTESTINAL: Soft. No focus of tenderness. No flank tenderness. MUSCULOSKELETAL: Extremities without clubbing, cyanosis, or edema. No obvious deformities. NEUROLOGICAL: Awake and alert. No obvious cranial nerve deficits. Motor grossly within normal limits. Five out of 5 muscle strength in the arms and legs. Normal speech. PSYCHIATRIC: Appropriate mood and affect; insight and judgment normal. Data Data Last Documented VS Vital Signs Date Time Temp Pulse Resp B/P (MAP) Pulse Ox O2 Delivery O2 Flow Rate FiO2 03/29/17 13:32 97 Room Air 03/29/17 11:45 97.6 57 14 vital signs reviewed Orders Orders Urinalysis - C+S If Indicated (03/29/17 12:09) Ed Urine Pregnancytest Poc (03/29/17 12:09) Complete Blood Count With Diff (03/29/17 13:07) Comprehensive Metabolic Panel (03/29/17 13:07) Lipase (03/29/17 13:07) Iv Access Insert/Monitor (03/29/17 13:07) Ecg Monitoring (03/29/17 13:07) Oximetry (03/29/17 13:07) Sodium Chloride 0.9% Flush (Ns Flush) (03/29/17 13:15) Labs Laboratory Tests Test 03/29/17 12:17 03/29/17 13:26 Urine Color YELLOW Urine Turbidity HAZY Urine pH 6.0 Urine Specific [place] 1.025 Urine Protein TRACE mg/dL Urine Glucose (UA) NEG mg/dL Urine Ketones NEG mg/dL Urine Occult Blood MOD Urine Nitrite NEG Urine Bilirubin NEG Urine Urobilinogen LESS THAN 2.0 MG/DL Urine Leukocyte Esterase SMALL Urine RBC 1 /hpf Urine WBC 3 /hpf Urine Squamous Epithelial Cells 10 /hpf Urine Transitional Epithelial Cells 1 /hpf Urine Bacteria FEW /hpf Urine Mucus FEW /lpf Microscopic Urinalysis Comment CULT NOT INDICATED White Blood Count 11.5 TH/MM3 Red Blood Count 4.58 MIL/MM3 Hemoglobin 12.4 GM/DL Hematocrit 37.9 % Mean Corpuscular Volume 82.9 FL Mean Corpuscular Hemoglobin 27.2 PG Mean Corpuscular Hemoglobin Concent 32.8 % Red Cell Distribution Width 14.4 % Platelet Count 227 TH/MM3 Mean Platelet Volume 9.2 FL Neutrophils (%) (Auto) 74.5 % Lymphocytes (%) (Auto) 17.3 % Monocytes (%) (Auto) 4.7 % Eosinophils (%) (Auto) 2.7 % Basophils (%) (Auto) 0.8 % Neutrophils # (Auto) 8.6 TH/MM3 Lymphocytes # (Auto) 2.0 TH/MM3 Monocytes # (Auto) 0.5 TH/MM3 Eosinophils # (Auto) 0.3 TH/MM3 Basophils # (Auto) 0.1 TH/MM3 CBC Comment DIFF FINAL Differential Comment Blood Urea Nitrogen 17 MG/DL Creatinine 0.77 MG/DL Random Glucose 80 MG/DL Total Protein 7.3 GM/DL Albumin 3.4 GM/DL Calcium Level 8.4 MG/DL Alkaline Phosphatase 64 U/L Aspartate Amino Transf (AST/SGOT) 13 U/L Alanine Aminotransferase (ALT/SGPT) 20 U/L Total Bilirubin 0.2 MG/DL Sodium Level 138 MEQ/L Potassium Level 4.2 MEQ/L Chloride Level 105 MEQ/L Carbon Dioxide Level 26.3 MEQ/L Anion Gap 7 MEQ/L Estimat Glomerular Filtration Rate 83 ML/MIN Lipase 205 U/L MDM Medical Decision Making Medical Screen Exam Complete: Yes Emergency Medical Condition: Yes Medical Record Reviewed: Yes Differential Diagnosis Gastritis, pancreatitis, appendicitis, acute cholecystitis, ascending cholangitis, AAA, perforated viscous, mesenteric ischemia, hepatitis, cystitis, hydronephrosis/hydroureter/nephroureter calculus, mesenteric adenitis, biliary colic Narrative Course CBC & BMP Diagram 03/29/17 13:26 Total Protein 7.3, Albumin 3.4, Calcium Level 8.4 L, Alkaline Phosphatase 64, Aspartate Amino Transf (AST/SGOT) 13 L, Alanine Aminotransferase (ALT/SGPT) 20, Total Bilirubin 0.2 The patient is resting comfortably and feels better, is alert and in no distress. The patients results and examination findings were discussed. The repeat examination is unremarkable and benign. The history, exam, diagnostic testing, and current condition do not suggest any significant pathology to warrant further testing, continued ED treatment, admission, or surgical evaluation at this point. The vital signs have been stable. The patient does not have uncontrollable pain, intractable vomiting, or other significant symptoms. The patient's condition is stable and appropriate for discharge. The patient will pursue further outpatient evaluation with a primary care physician or other designated or consulting physician as indicated in the discharge instructions. The patient expressed understanding and was agreeable with this plan. Diagnosis Primary Impression: Abdominal pain Qualified Codes: R10.9 - Unspecified abdominal pain Referrals: Primary Care Physician 2 days Med/Other Pt SpecificInfo: Prescription(s) given Scripts Dicyclomine (Bentyl) 10 Mg Cap 10 MG PO TID Y for Bowel Management, #20 CAP 0 Refills Prov: Mingo Garibay MD 03/29/17 Disposition: 01 DISCHARGE HOME Condition: Stable Mingo Garibay MD Mar 29, 2017 14:12
[2017-03-29] MEDS ORDERED: DICY10 PO (14:20)
[2017-03-29 14:30] VITALS: BP 129/74
== END 2017-03-29 15:00 | disposition home or self-care (01) ==
LOC: NEPD 11:42
DX: R10.11 Right upper quadrant pain (principal); M19.90 Unspecified osteoarthritis, unspecified site; K21.9 Gastro-esophageal reflux disease without esophagitis; Z86.73 Personal history of transient ischemic attack (TIA), and cerebral infarction without residual deficits
CPT/HCPCS: 80053; 81001; 83690; 84703; 85025; 99283

== ENCOUNTER 2017-10-10 16:07 | Inpatient (IN) ==
[2017-10-10 18:07] LABS: Baso # (Auto) 0.4 th/mm3 (0.0-0.2); Baso % (Auto) 2.9 % (0.0-2.0); Eos # (Auto) 0.4 th/mm3 (0.0-0.4); Eos % (Auto) 2.9 % (0.0-4.0); Hematocrit 40.8 % (35.0-46.0); Hemoglobin 13.3 gm/dL (11.6-15.3); Lymph # (Auto) 2.5 th/mm3 (1.0-4.8); Lymph % (Auto) 19.2 % (9.0-44.0); Mean Corpuscular HGB Conc 32.5 % (32.0-36.0); Mean Corpuscular Hemoglobin 26.9 pg (27.0-34.0); Mean Corpuscular Volume 82.9 fL (80.0-100.0); Mean Platelet Volume 9.7 fL (7.0-11.0); Mono # (Auto) 0.7 th/mm3 (0.0-0.9); Mono % (Auto) 5.3 % (0.0-8.0); Neut # (Auto) 9.2 th/mm3 (1.8-7.7); Neut % (Auto) 69.7 % (16.0-70.0); Platelet Count 244 th/mm3 (150-450); Red Blood Count 4.93 mil/mm3 (4.00-5.30); White Blood Count 13.2 th/mm3 (4.0-11.0)
[2017-10-10 18:16] LABS: Potassium 3.7 meq/L (3.5-5.1)
[2017-10-10 18:18] LABS: Calcium 8.2 mg/dL (8.5-10.1)
[2017-10-10 18:19] LABS: Carbon Dioxide 22.5 meq/L (21.0-32.0)
[2017-10-10 18:27] LABS: Troponin I 0.18 ng/mL (0.02-0.05)
--- NOTE | 2017-10-10 18:35 | ED ---
HPI General Chief complaint: Respiratory Symptoms Stated complaint: sob/pain in right side Time Seen by Provider: 10/10/17 17:39 History of Present Illness HPI narrative: Patient 42-year-old female presents emergency department for evaluation of shortness of breath gradually worsening over the past week or longer. Patient states largely exertional shortness of breath but does not endorse any edema of her legs, no history of long periods of stasis blood clots in the past for hormone replacement therapy or control pills. Patient states is never happened to her in the past, cannot think of any inciting or relieving her events. No chest pain no abdominal pain no nausea vomiting. On review of system the patient also endorses some right flank pain which she states is new for her and states only worse when she takes a deep breath. Onset (ago): week(s) Radiation: non-radiation Severity: moderate Relieving factors: none Exacerbating factors: movement Associated symptoms: denies other symptoms Treatments prior to arrival: none Related Data Home Medications Medication Instructions Recorded Confirmed No Known Home Medications 10/10/17 10/10/17 Allergies Allergy/AdvReac Type Severity Reaction Status Date / Time No Known Allergies Allergy Verified 10/10/17 16:17 Review of Systems Except as stated in HPI: all other systems reviewed are negative [facility] Medical History Medical History Endometriosis (Acute) Nasal fracture (Acute) Surgical History Surgical History Hx of cholecystectomy (Acute) Social History Social History Substance History: No History of Abuse Second Hand Smoke Exposure: No Smoking Status: Never smoker How Often Do You Have a Drink Containing Alcohol: Never Recent Travel in [facility] within the Last 8 Weeks: No Recent Out of Country Travel within the Last 8 Weeks: No Immunization History Tetanus Immunization: <5 Years Hx Influenza Vaccine This Season: Yes Exam Narrative Exam Narrative: GENERAL: Well-developed obese female in no obvious distress SKIN: Focused skin assessment warm/dry. HEAD: Atraumatic. Normocephalic. EYES: Pupils equal and round. No scleral icterus. No injection or drainage. ENT: No nasal bleeding or discharge. Mucous membranes pink and moist. NECK: Trachea midline. No JVD. CARDIOVASCULAR: Mildly tachycardic and regular rhythm. No murmur appreciated. RESPIRATORY: No accessory muscle use. Clear to auscultation. Breath sounds equal bilaterally. Good air entry bilaterally, no increased work of breathing. GASTROINTESTINAL: Abdomen soft, non-tender, nondistended. Hepatic and splenic margins not palpable. MUSCULOSKELETAL: No obvious deformities. No clubbing. No cyanosis. No edema. NEUROLOGICAL: Awake and alert. No obvious cranial nerve deficits. Motor grossly within normal limits. Normal speech. PSYCHIATRIC: Appropriate mood and affect; insight and judgment normal. Course Initial Documented Vital Signs Temperature 97.3 F L 10/10/17 16:17 Pulse Rate 111 H 10/10/17 16:17 Respiratory Rate 16 10/10/17 16:17 Blood Pressure 140/95 H 10/10/17 16:17 Pulse Oximetry 94 L 10/10/17 16:17 Last Documented Vital Signs Temperature 97.3 F L 10/10/17 16:17 Pulse Rate 82 10/10/17 18:30 Respiratory Rate 16 10/10/17 16:17 Blood Pressure 140/95 H 10/10/17 16:17 Pulse Oximetry 94 L 10/10/17 18:30 Critical Care Time Critical Care Time: Yes Total Critical Care Time: 35 Attestation: Aggregate critical care time was 35 minutes. Time to perform other separately billable procedures was not included in the critical care time. My time did not include minutes spent treating any other patients simultaneously or on activities that did not directly contribute to the patient's treatment. The services I provided to this patient were to treat and/or prevent clinically significant deterioration that could result in: , disability, organ failure I provided critical care services requiring my management, as noted below: Chart data review, documentation time, medication orders and management, vital sign assessments/reviewing monitor data, ordering and reviewing lab tests, ordering and interpreting/reviewing x-rays and diagnostic studies, care of the patient and discussion of the patient with the admitting physicians. Medical Decision Making MDM Narrative Medical decision making narrative: Patient room to the emergency department, all things being equal PE needs consideration. She is low risk by Wells and PERC criteria but certainly not excludable by her heart rate. I discussed with her the options and recommended CT PE protocol she is agreeable. Patient's EKG was reviewed and showed a sinus rhythm with inverted T in lead III undetermined significance, no ST segment changes are seen. Intervals within normal limits. This is a normal EKG there are no convincing signs of ischemia here. Patient went to CT PE and does indeed have fairly large volume PEs particularly on the right side, has smaller volume on the left side as well. This is not a completely unexpected finding. There is some evidence of right heart strain. Patient was heparinized 7000 units bolus followed by drip. On further history the patient does have a history of a TIA in the past has never had a hypercoagulable workup. Discussed the results with the patient recommended ICU admission and she is agreeable. The patient was discussed with Dr. Parham for admission he request a stat echocardiogram which I have ordered. She will have to be transferred to the [facility] hospital and will coordinate with echocardiogram to get this done as expediently as possible. Patient appears quite comfortable saturating well respiratory rate of 16, pulse rate of 82 when at rest. I do not think there is indication for TPA at this time and think that the risks outweigh the benefits but will get the echocardiogram to further risk stratify. Transportation is being arranged to the [facility]. The patient is stable the best my ability for this transportation. Differential Diagnosis Differential Diagnosis: Asthma unlikely, PE unlikely, pneumonia unlikely, CHF unlikely peer Lab Data Result diagrams: 10/10/17 18:00 10/10/17 18:00 Lab Results 10/10/17 10/10/17 10/10/17 Range/Units 18:00 18:00 19:15 CBC w Diff Auto diff final WBC 13.2 H (4.0-11.0) th/mm3 RBC 4.93 (4.00-5.30) mil/mm3 Hgb 13.3 (11.6-15.3) gm/dL Hct 40.8 (35.0-46.0) % MCV 82.9 (80.0-100.0) fL MCH 26.9 L (27.0-34.0) pg MCHC 32.5 (32.0-36.0) % RDW 14.0 (11.6-17.2) % Plt Count 244 (150-450) th/mm3 MPV 9.7 (7.0-11.0) fL Neut % (Auto) 69.7 (16.0-70.0) % Lymph % (Auto) 19.2 (9.0-44.0) % [place] % (Auto) 5.3 (0.0-8.0) % Eos % (Auto) 2.9 (0.0-4.0) % Baso % (Auto) 2.9 H (0.0-2.0) % Neut # (Auto) 9.2 H (1.8-7.7) th/mm3 Lymph # (Auto) 2.5 (1.0-4.8) th/mm3 [place] # (Auto) 0.7 (0.0-0.9) th/mm3 Eos # (Auto) 0.4 (0.0-0.4) th/mm3 Baso # (Auto) 0.4 H (0.0-0.2) th/mm3 WBC Differential . Differential Comment . PT 10.6 (9.8-11.6) sec INR 1.0 Ratio APTT 23.3 L (24.3-30.1) sec Sodium 140 (136-145) meq/L Potassium 3.7 (3.5-5.1) meq/L Chloride 108 H (98-107) meq/L Carbon Dioxide 22.5 (21.0-32.0) meq/L Anion Gap 10 (5-15) meq/L BUN 15 (7-18) mg/dL Creatinine 0.90 (0.50-1.00) mg/dL Estimated GFR 69 L (>89) mL/min Random Glucose 107 H (74-106) mg/dL Calcium 8.2 L (8.5-10.1) mg/dL Troponin I 0.18 H (0.02-0.05) ng/mL Imaging Data Radiologist's impression: Chest CTA 10/10/17 17:46 CONCLUSION: Bilateral pulmonary emboli being more prominent on the right. Chest X-Ray 10/10/17 17:46 CONCLUSION: No acute cardiopulmonary process Discharge Plan Discharge Disposition Patient Disposition: 30 Still Patient Discharge Condition Condition: Stable Discharge Details Diagnosis: Pulmonary embolism Physicians Team ED Provider: Ke Dietz Primary Care Provider: Primary Care Adrienne Arellano Attending Provider: Jeovany Parham Status ED Status: Admitted Patient
--- NOTE | 2017-10-10 18:51 | XR ---
EXAM DATE: 10/10/2017 6:28 PM EDT AGE/SEX: 42 years / Female INDICATIONS: Shortness of breath CLINICAL DATA: This is the patient's initial encounter. Patient reports that signs and symptoms have been present for 3 days and indicates a pain score of 0/10. MEDICAL/SURGICAL HISTORY: None. None. COMPARISON: No prior exams available for comparison. FINDINGS: A single AP view of the chest demonstrates the lungs to be symmetrically aerated without evidence of mass, infiltrate or effusion. The cardiomediastinal contours are unremarkable. Osseous structures a re intact. CONCLUSION: No acute cardiopulmonary process Electronically signed by: Madan Ferrell MD 10/10/2017 6:50 PM EDT
[2017-10-10] MEDS ORDERED: *Heparin 10,000 UNITS/10 ML Vial Periprocedural ONLY IV.PUSH ONE (19:15)
--- NOTE | 2017-10-10 19:22 | CT ---
EXAM DATE: 10/10/2017 7:13 PM EDT AGE/SEX: 42 years / Female INDICATIONS: Shortness of breath for 2 weeks, weakness. CLINICAL DATA: This is the patient's initial encounter. Patient reports that signs and symptoms have been present for 2 weeks and indicates a pain score of 2/10. MEDICAL/SURGICAL HISTORY: . Endometriosis, nasal fracture. Cholecystectomy. RADIATION DOSE: 21.59 CTDI (mGy) COMPARISON: [facility], CT ABDOMEN & PELVIS W CONTRAST, 08/27/2016. . TECHNIQUE: Volumetric scanning was performed using a multi-row detector CT scanner during bolus infu alexsander of 94 ml Omnipaque 350 (iohexol) nonionic water-soluble contrast as a single exam dose. The mayur a was post processed with a variety of visualization algorithms including full volume maximum intensi ty projection and sliding thin slab reformation. Using automated exposure control and adjustment of t he mA and/or kV according to patient size, radiation dose was kept as low as reasonably achievable to obtain optimal diagnostic quality images. DICOM format image data is available electronically for r eview and comparison. FINDINGS: Pulmonary Arteries: Multiple pulmonary emboli are seen bilaterally. There is prominent pulmonary emb olus occupying much of the pulmonary supplying the right upper lung, right middle lobe, and right low er lobe. There is milder emboli seen at the left upper lobe and left lower lobes. The main pulmonary artery appears enlarged. Lung: No infiltrates seen. Effusion: None. Mediastinum: No evidence of mediastinal or hilar adenopathy. Other: The axilla is unremarkable. There is a mild hiatal hernia. There are low-density masses in th e liver. These were present on the prior exam. These are nonspecific. The patient is status post chol ecystectomy. CONCLUSION: Bilateral pulmonary emboli being more prominent on the right. Electronically signed by: Madan Ferrell MD 10/10/2017 7:21 PM EDT
[2017-10-10 19:37] LABS: Activated Partial Thrombo Time 23.3 sec (24.3-30.1); Prothrombin Time 10.6 sec (9.8-11.6)
[2017-10-10] MEDS: Heparin Drip 25,000 UNIT/250 ML BAG IV.CONT PRN (20:00)
[2017-10-10] MEDS ORDERED: Heparin 10,000 UNITS/10 ML Vial (for IV use) IV.PUSH ONE (20:00)
--- NOTE | 2017-10-10 21:43 | US ---
EXAM DATE: 10/10/2017 9:33 PM EDT AGE/SEX: 42 years / Female INDICATIONS: Bilateral leg swelling. CLINICAL DATA: This is the patient's initial encounter. Patient reports that signs and symptoms have been present for 1 day and indicates a pain score of 1/10. MEDICAL/SURGICAL HISTORY: . Endometriosis. Nasal fracture. Cholecystectomy. COMPARISON: No prior exams available for comparison. TECHNIQUE: Venous ultrasound of both lower extremities was performed from the inguinal ligament to t he proximal calf. Real-time, color Doppler and spectral tracing, compression and augmentation techni ques were used. FINDINGS: Right Leg: There is thrombus in the right popliteal vein and posterior tibial vein. This occupies mu ch of the lumen. However, it is not completely occlusive. The common femoral vein and superficial fem oral vein are patent. Left Leg: Normal compression of the deep venous system from the inguinal region to the proximal calf . No echogenic clot is seen. Normal response of the venous system to augmentation and respiration. Other: None. CONCLUSION: 1. Nearly occlusive thrombus in the right popliteal and posterior tibial veins. 2. No DVT seen on the left side. Electronically signed by: Madan Ferrell MD 10/10/2017 9:41 PM EDT
[2017-10-10] MEDS ORDERED: Bisacodyl 10 MG Supp RECTAL PRN (21:53)
[2017-10-10] MEDS ORDERED: Acetaminophen 325 MG Tablet PO PRN (21:53)
--- NOTE | 2017-10-10 22:02 | P.HPCC ---
History of Present Illness Primary Care Physician: No Primary Care Physician History of Present Illness: 42-year-old female presents for evaluation of shortness of breath gradually worsening over the past week. Patient states largely exertional shortness of breath but does not endorse any edema of her legs, no history of long periods of stasis blood clots in the past for hormone replacement therapy or control pills. Patient states this has never happened to her in the past, cannot think of any inciting or relieving her events. No chest pain no abdominal pain no nausea vomiting. On review of system the patient also endorses some right flank pain which she states is new for her and states only worse when she takes a deep breath. She however has a history of stroke at the age of 26 without residual weakness. Patient does not remember any coagulopathy workup done. Inpatient Certification: I certify that the inpatient services were ordered in accordance with Medicare regulations governing the order. This includes certification that hospital inpatient services are reasonable and necessary and in the case of services not specified as inpatient-only under 42 CFR 419.22(n), that they are appropriately provided as inpatient services in accordance to with the 2-midnight benchmark under 43 CFR 412.3(e) Estimated Total Length of Stay (Days): 5 Plans for Post Hospital Care: Not yet determined Review of Systems All other systems reviewed negative except as stated in HPI PMFSH - History History Provided By: Patient - Medical History Medical History: Medical History (Last Updated 10/11/17 @ 02:38 by Jeovany Parham MD) CVA (cerebral vascular accident) Endometriosis Nasal fracture - Surgical History Surgical History: Surgical History (Last Updated 10/10/17 @ 17:37 by Helene Moser RN) Hx of cholecystectomy - Tobacco History Second Hand Smoke Exposure: No Smoking Status: Never smoker - Alcohol History How Often Do You Have a Drink Containing Alcohol: Never - Substance Use History Substance History: No History of Abuse - Travel History Recent Travel in the [place] Within the Last 8 Weeks: No Recent Travel Out of the Country Within the Last 8 Weeks: No - Immunization History Tetanus Immunization: <5 Years Hx Influenza Vaccine This Season: Yes Medications and Allergies Active Medications: Active Medications Acetaminophen (Tylenol) 650 mg PO Q6H PRN PRN Reason: PAIN 1-10 AND/OR FEVER >101F Al Hydroxide/Mg Hydroxide (Milk Of Magnesia Liq) 30 ml PO Q12H PRN PRN Reason: Mild Constipation Albuterol (Duoneb Neb (Prn)) 1 ampul NEB Q2HR NEB PRN PRN Reason: WHEEZING Bisacodyl (Dulcolax Supp) 10 mg RECTAL DAILY PRN PRN Reason: SEVERE CONSITIPATION Chlorhexidine Gluconate (Chlorhexidine 2% Cloth) 3 pack TOPICAL DAILY@0400 [facility] Stop: 10/16/17 03:59 Chlorhexidine Gluconate (Chlorhexidine 2% Cloth) 3 pack TOPICAL DAILY@0400 PRN PRN Reason: Extra cloth needed Stop: 10/16/17 03:59 Famotidine (Pepcid Pf Inj) 20 mg IV.PUSH Q12HR [facility] Heparin Sodium/Dextrose (Heparin/D5w 25,000 U/250 Ml) 25,000 unit in 250 mls @ 0 mls/hr IV.CONT TITRATE PRN; Protocol PRN Reason: Per Protocol Last Admin: 10/10/17 20:00 Dose: 1,800 units/hr, 18 mls/hr Sodium Chloride (Ns Inj) 1,000 mls @ 84 mls/hr IV.CONT .[id number] [facility] Lactulose (Lactulose Liq) 30 ml PO DAILY PRN PRN Reason: SEVERE CONSITIPATION Morphine Sulfate (Morphine Inj) 2 mg IV.PUSH Q2H PRN PRN Reason: PAIN SCALE 6 TO 10 Ondansetron HCl (Zofran Inj) 4 mg IV.PUSH Q6H PRN PRN Reason: NAUSEA OR VOMITING Senna/Docusate Sodium (Mariana-Colace) 1 tab PO BID [facility] Sennosides (Senokot) 17.2 mg PO Q12H PRN PRN Reason: Moderate Constipation Sodium Chloride (Ns Flush) 2 ml IV.FLUSH UNSCH PRN PRN Reason: FLUSH AFTER USING IV ACCESS Sodium Chloride (Ns Flush) 2 ml IV.FLUSH PRN PRN PRN Reason: FLUSH AFTER USING IV ACCESS Sodium Chloride (Ns Flush) 2 ml IV.FLUSH BID [facility] Allergies Allergy/AdvReac Type Severity Reaction Status Date / Time No Known Allergies Allergy Verified 10/10/17 16:17 Home Medications Medication Instructions Recorded Confirmed Type No Known Home Medications 10/10/17 10/10/17 History Results - Labs CBC & Chem 7: 10/10/17 18:00 10/10/17 18:00 Labs: Short CBC 10/10/17 Range/Units 18:00 WBC 13.2 H (4.0-11.0) th/mm3 Hgb 13.3 (11.6-15.3) gm/dL Hct 40.8 (35.0-46.0) % Plt Count 244 (150-450) th/mm3 BMP 10/10/17 18:00 Sodium 140 Potassium 3.7 Chloride 108 H Carbon Dioxide 22.5 BUN 15 Creatinine 0.90 Calcium 8.2 L Cardiac Enzymes 10/10/17 Range/Units 18:00 Troponin I 0.18 H (0.02-0.05) ng/mL - Imaging Impressions Chest CTA 10/10/17 17:46 CONCLUSION: Bilateral pulmonary emboli being more prominent on the right. Chest X-Ray 10/10/17 17:46 CONCLUSION: No acute cardiopulmonary process Venous Doppler Study 10/10/17 19:24 CONCLUSION: 1. Nearly occlusive thrombus in the right popliteal and posterior tibial veins. 2. No DVT seen on the left side. Exam Vital signs: Vital Signs 10/10/17 16:17 10/10/17 18:30 10/10/17 20:00 Temperature 97.3 F L Pulse Rate 111 H 82 Respiratory Rate 16 Blood Pressure 140/95 H Pulse Oximetry 94 L 94 L 97 10/10/17 20:12 10/10/17 20:49 10/10/17 20:55 Temperature Pulse Rate 78 84 Respiratory Rate 18 6 L Blood Pressure 120/71 136/74 Pulse Oximetry 97 96 96 10/10/17 21:00 10/10/17 21:15 10/10/17 21:30 Temperature 97.8 F Pulse Rate 82 85 91 H Respiratory Rate 27 H 22 29 H Blood Pressure 122/70 126/63 119/55 L Pulse Oximetry 99 97 97 Intake & Output 10/10/17 10/10/17 10/11/17 06:59 18:59 06:59 Weight 116.5 kg - Constitutional mild distress - Routine HEENT Exam Head: Present: normocephalic, atraumatic Eye: Present: PERRL, normal accommodation - Routine Neck Exam Present: supple, full ROM. Absent: JVD, carotid bruit - Routine Respiratory Exam Absent: accessory muscle use, rhonchi, stridor, wheezes - Routine Cardiovascular Exam Present: RRR, S1, S2 - Routine Abdominal Exam Present: soft, normoactive bowel sounds. Absent: tenderness, distended - Routine Extremities Exam Absent: cyanosis, clubbing - Routine Skin Exam Present: intact. Absent: cyanosis, erythema - Routine Neurological Exam Present: alert, oriented X3, CN II-XII intact. Absent: sensory deficit, motor deficit Caprini VTE Risk Assessment Caprini VTE Risk Assessment: Moderate/High Risk (score >= 2) Caprini Risk Assessment Model: Point Value = 1 Point Value = 2 Point Value = 3 Point Value = 5 Age 41-60 Minor surgery BMI > 25 kg/m2 Swollen legs Varicose veins or History of unexplained or recurrent spontaneous Oral contraceptives or hormone replacement Sepsis (< 1 month) Serious lung disease, including pneumonia (< 1 month) Abnormal pulmonary function Acute myocardial infarction Congestive heart failure (< 1 month) History of inflammatory bowel disease Medical patient at bed rest Age 61-74 Arthroscopic surgery Major open surgery (> 45 min) Laparoscopic surgery (> 45 min) Malignancy Confined to bed (> 72 hours) Immobilizing plaster cast Central venous access Age >= 75 History of VTE Family history of VTE Factor V Leiden Prothrombin [id number] Lupus anticoagulant Anticardiolipin antibodies Elevated serum homocysteine Heparin-induced thrombocytopenia Other congenital or acquired thrombophilia Stroke (< 1 month) Elective arthroplasty Hip, pelvis, or leg fracture Acute spinal cord injury (< 1 month) Prophylaxis Regimen: Total Risk Factor Score Risk Level Prophylaxis Regimen 0-1 Low Early ambulation 2 Moderate Order ONE of the following: *Sequential Compression Device (SCD) *Heparin 5000 units SQ BID 3-4 Higher Order ONE of the following medications: *Heparin 5000 units SQ TID *Enoxaparin/Lovenox 40 mg SQ daily (WT < 150 kg, CrCl > 30 mL/min) *Enoxaparin/Lovenox 30 mg SQ daily (WT < 150 kg, CrCl > 10-29 mL/min) *Enoxaparin/Lovenox 30 mg SQ BID (WT < 150 kg, CrCl > 30 mL/min) AND/OR *Sequential Compression Device (SCD) 5 or more Highest Order ONE of the following medications: *Heparin 5000 units SQ TID (Preferred with Epidurals) *Enoxaparin/Lovenox 40 mg SQ daily (WT < 150 kg, CrCl > 30 mL/min) *Enoxaparin/Lovenox 30 mg SQ daily (WT < 150 kg, CrCl > 10-29 mL/min) *Enoxaparin/Lovenox 30 mg SQ BID (WT < 150 kg, CrCl > 30 mL/min) AND *Sequential Compression Device (SCD) Assessment and Plan - Assessment and Plan Plan: Pulmonary embolism -Hemodynamically stable -Comfortable on nasal cannula -O2 sats in high 90s on nasal cannula -Heparin drip -That is 2D echo to evaluate for RV strain -TPA if hemodynamically unstable DVT -Right lower extremity DVT -No history of trauma or immobility -Also history of previous CVA -Hypercoagulable workup -Antithrombin III -Protein C and S activity -Factor V Leiden mutation -Antiphospholipid antibody Elevated troponins -Due to above -Heparin drip per pharmacy dosing Hyperglycemia -No history of diabetes -Insulin sliding scale if indicated DVT GI prophylaxis -Teds SCDs -Heparin drip -Pepcid Critical Care: The total critical care time was 35 minutes. Time to perform other separately billable procedures was not included in the critical care time. H&P: Quality - VTE Deep Vein Thrombosis/Pulmonary Embolism Present on Admission: Yes
--- NOTE | 2017-10-10 22:52 | ECHRPT ---
Indication: BILATERAL PE, EVALUATE FOR RT HEART FAILURE CONCLUSIONS Normal left ventricular size. Wall thickness is normal. The left ventricular systolic function is low normal with an estimated ejection fraction in the rang e of 50- 55%. The right ventricular systoilc function is mildly decreased. The right ventricle is mildly dilated. The right atrial size is mildly dilated. No atrial level shunt is demonstrated by color flow Doppler interrogation. No atrial level shunt is observed with agitated saline contrast administration. There is [id number] tricuspid valve regurgitation. The estimated pulmonary arterial pressure is 87.1 mmHg. There is estimated severe pulmonary hypertension present ( > 70 mmHg). Trivial pulmonary valve regurgitation. The inferior vena cava was not well visualized. BP: / HR: Rhythm: Sinus MEASUREMENTS (Male / Female) Normal Values Technical Quality:Fair 2D ECHO LV Diastolic Diameter PLAX 3.7 cm 4.2 - 5.9 / 3.9 - 5.3 cm LV Systolic Diameter PLAX 3.3 cm IVS Diastolic Thickness 0.9 cm 0.6 - 1.0 / 0.6 - 0.9 cm LVPW Diastolic Thickness 0.9 cm 0.6 - 1.0 / 0.6 - 0.9 cm LV Relative Wall Thickness 0.5 RV Internal Dim ED PLAX 3.6 cm LVOT Diameter 2.0 cm Aortic Root Diameter 3.0 cm LA Systolic Diameter LX 3.6 cm 3.0 - 4.0 / 2.7 - 3.8 cm M-MODE AV Cusp Separation MM 2.1 cm DOPPLER AV Peak Velocity 129.0 cm/s AV Peak Gradient 6.7 mmHg AV Mean Gradient 3.0 mmHg AV Velocity Time Integral 19.2 cm LVOT Peak Velocity 77.5 cm/s LVOT Peak Gradient 2.4 mmHg LVOT Velocity Time Integral 13.8 cm AV Area Cont Eq vti 2.3 cm AV Area Cont Eq pk 1.9 cm Mitral E Point Velocity 44.9 cm/s Mitral A Point Velocity 51.3 cm/s Mitral E to A Ratio 0.9 LV E' Lateral Velocity 14.6 cm/s Mitral E to LV E' Lateral Ratio 3.1 LV E' Septal Velocity 8.6 cm/s Mitral E to LV E' Septal Ratio 5.2 TR Peak Velocity 439.0 cm/s TR Peak Gradient 77.1 mmHg Right Atrial Pressure 10.0 mmHg Pulmonary Artery Systolic Pressu 87.1 mmHg Right Ventricular Systolic Press 87.1 mmHg PV Peak Velocity 58.7 cm/s PV Peak Gradient 1.4 mmHg FINDINGS LEFT VENTRICLE Normal left ventricular size. Wall thickness is normal. The left ventricular systolic function is low normal with an estimated ejection fraction in the rang e of 50- 55%. RIGHT VENTRICLE The right ventricular systoilc function is mildly decreased. The right ventricle is mildly dilated. LEFT ATRIUM The left atrial size is normal. RIGHT ATRIUM The right atrial size is mildly dilated. ATRIAL SEPTUM No atrial level shunt is demonstrated by color flow Doppler interrogation. No atrial level shunt is observed with agitated saline contrast administration. AORTA The aortic root and proximal ascending aorta are normal in size on limited imaging. MITRAL VALVE Structurally normal mitral valve. No mitral valve stenosis or regurgitation. AORTIC VALVE Trileaflet aortic valve. No aortic valve stenosis or regurgitation. TRICUSPID VALVE There is [id number] tricuspid valve regurgitation. The estimated pulmonary arterial pressure is 87.1 mmHg. There is estimated severe pulmonary hypertension present ( > 70 mmHg). PULMONARY VALVE Trivial pulmonary valve regurgitation. VESSELS The inferior vena cava was not well visualized. PERICARDIUM No pericardial effusion. Mark Payton MD, FACC (Electronically Signed) Final Date:10 October 2017 22:51
[2017-10-11] MEDS: Sod Chloride 0.9% Inj 1,000 ML IV.CONT SCH ×3 (01:29→23:11)
[2017-10-11] MEDS ORDERED: Chlorhexidine Gluconate 2% 1 Pack (2 Cloths) TOPICAL PRN (04:00)
[2017-10-11] MEDS: Chlorhexidine Gluconate 2% 1 Pack (2 Cloths) TOPICAL SCH (04:28)
[2017-10-11 05:19] LABS: Baso # (Auto) 0.1 th/mm3 (0.0-0.2); Baso % (Auto) 0.7 % (0.0-2.0); Eos # (Auto) 0.4 th/mm3 (0.0-0.4); Eos % (Auto) 3.8 % (0.0-4.0); Hematocrit 35.7 % (35.0-46.0); Hemoglobin 11.7 gm/dL (11.6-15.3); Lymph # (Auto) 3.8 th/mm3 (1.0-4.8); Mean Corpuscular HGB Conc 32.7 % (32.0-36.0); Mean Corpuscular Hemoglobin 26.8 pg (27.0-34.0); Mean Corpuscular Volume 81.9 fL (80.0-100.0); Mean Platelet Volume 9.5 fL (7.0-11.0); Mono # (Auto) 0.6 th/mm3 (0.0-0.9); Mono % (Auto) 4.8 % (0.0-8.0); Neut # (Auto) 6.6 th/mm3 (1.8-7.7); Neut % (Auto) 57.7 % (16.0-70.0); Platelet Count 208 th/mm3 (150-450); Red Blood Count 4.36 mil/mm3 (4.00-5.30); Red Cell Distribution Width 14.5 % (11.6-17.2); White Blood Count 11.5 th/mm3 (4.0-11.0)
[2017-10-11 05:32] LABS: INR 1.1 Ratio; Prothrombin Time 10.8 sec (9.8-11.6)
[2017-10-11 05:35] LABS: Anion Gap 8 meq/L (5-15); Aspartate Aminotransferase 10 U/L (15-37); Blood Urea Nitrogen 11 mg/dL (7-18); Calcium 8.2 mg/dL (8.5-10.1); Carbon Dioxide 23.8 meq/L (21.0-32.0); Chloride 109 meq/L (98-107); Glomerular Filtration Rate 84 mL/min (>89); Glucose,Random 96 mg/dL (74-106); Magnesium 2.1 mg/dL (1.5-2.5); Potassium 3.4 meq/L (3.5-5.1); Sodium 141 meq/L (136-145)
[2017-10-11 05:36] LABS: Alanine Aminotransferase 16 U/L (10-53)
[2017-10-11 05:38] LABS: Alkaline Phosphatase 62 U/L (45-117); Total Protein 6.4 g/dL (6.4-8.2)
[2017-10-11] MEDS: Senna/Docusate Sodium 8.6/50 MG Tablet PO SCH ×2 (08:19→20:31)
[2017-10-11] MEDS: Famotidine PF Inj 20 MG/2 ML Vial IV.PUSH SCH ×2 (08:20→20:31)
[2017-10-11] MEDS: Heparin Drip 25,000 UNIT/250 ML BAG IV.CONT PRN ×3 (09:52→23:12)
[2017-10-11] MEDS: Morphine Inj 4 MG/ML Vial IV.PUSH PRN ×4 (09:53→23:20)
--- NOTE | 2017-10-11 13:16 | P.PNCC ---
Subjective Subjective Remarks/Hospital Course: Hospital Course: 42-year-old female presents for evaluation of shortness of breath gradually worsening over the past week. Patient states largely exertional shortness of breath but does not endorse any edema of her legs, no history of long periods of stasis blood clots in the past for hormone replacement therapy or control pills. Patient states this has never happened to her in the past, cannot think of any inciting or relieving her events. No chest pain no abdominal pain no nausea vomiting. On review of system the patient also endorses some right flank pain which she states is new for her and states only worse when she takes a deep breath. She however has a history of stroke at the age of 26 without residual weakness. Patient does not remember any coagulopathy workup done. Subjective: 10/11: SOB stable. on 3L o2 by NC. hemodynamics stable. hgb stable. ROS otherwise negative. Objective Vital Signs / I&O: Vital Signs 10/10/17 16:17 10/10/17 18:30 10/10/17 20:00 Temperature 36.3 C L Pulse Rate 111 H 82 Respiratory Rate 16 Blood Pressure 140/95 H Pulse Oximetry 94 L 94 L 97 10/10/17 20:12 10/10/17 20:49 10/10/17 20:55 Temperature Pulse Rate 78 84 Respiratory Rate 18 6 L Blood Pressure 120/71 136/74 Pulse Oximetry 97 96 96 10/10/17 21:00 10/10/17 21:15 10/10/17 21:30 Temperature 36.6 C Pulse Rate 82 85 91 H Respiratory Rate 27 H 22 29 H Blood Pressure 122/70 126/63 119/55 L Pulse Oximetry 99 97 97 10/10/17 21:45 10/10/17 22:00 10/10/17 22:01 Temperature Pulse Rate 83 82 83 Respiratory Rate 26 H 26 H 28 H Blood Pressure 118/69 137/79 Pulse Oximetry 98 97 98 10/10/17 22:15 10/10/17 23:00 10/11/17 00:00 Temperature 36.6 C Pulse Rate 79 79 82 Respiratory Rate 27 H 28 H 25 H Blood Pressure 132/76 Pulse Oximetry 96 99 94 L 10/11/17 01:00 10/11/17 02:00 10/11/17 03:00 Temperature Pulse Rate 78 76 72 Respiratory Rate 25 H 20 20 Blood Pressure Pulse Oximetry 95 93 L 89 L 10/11/17 03:17 10/11/17 03:30 10/11/17 04:00 Temperature 36.8 C Pulse Rate 77 76 75 Respiratory Rate 28 H 24 21 Blood Pressure 148/79 H 149/81 H 146/73 H Pulse Oximetry 93 L 95 95 10/11/17 06:00 10/11/17 08:00 10/11/17 08:49 Temperature 36.4 C L Pulse Rate 67 80 Respiratory Rate 23 Blood Pressure 164/79 H Pulse Oximetry 100 95 10/11/17 10:00 10/11/17 12:00 Temperature 36.7 C Pulse Rate 80 91 H Respiratory Rate 22 Blood Pressure 140/74 Pulse Oximetry 97 Intake & Output 10/10/17 10/11/17 10/11/17 18:59 06:59 18:59 Intake Total 960 / 960 1500 / 1500 Balance 960 / 960 1500 / 1500 Weight 116.5 kg 116 kg Intake: IV 1500 / 1500 Heparin/D5W 25,000 U/250 mL 25, 500 / 500 000 unit In 250 ml @ Per Protocol IV.CONT TITRATE PRN Rx #:[id number] NS Inj 1,000 ML @ 84 mls/hr IV. 1000 / 1000 CONT .[id number] [facility]UCAS Rx#:[id number] Oral 960 / 960 Other: # Voids 4 Date of Last Bowel Movement 10/10/17 10/10/17 # Bowel Movements 0 Result Diagrams: 10/11/17 04:50 10/11/17 04:50 Objective Remarks: GENERAL: Obese female, lying in bed, no acute distress HEENT: Normocephalic. Atraumatic. Pupils equal, round, reactive, conjugate. Mucous membranes are moist NECK: Trachea is midline. There is no JVD. CHEST: Unlabored. O2 by nasal cannula at 3 L. Equal chest rise. CARDIOVASCULAR: Normal rate, regular rhythm. Sinus. ABDOMEN: Soft, nontender, nondistended. No guarding. MUSCULOSKELETAL: Pulses 2+. No peripheral edema. NEUROLOGICAL: RASS 0. CAM -. Follows commands. No focal deficits. Assessment and Plan - Assessment and Plan Plan: Assessment: 42-year-old female with pulmonary embolism and associated hypoxemia and acute dyspnea. Clinically stable. Continued heparin infusion. Can transfer out of ICU likely tomorrow if she continues to remain stable. Pulmonary embolism -Hemodynamically stable -Comfortable on nasal cannula -O2 sats in high 90s on nasal cannula -Heparin drip -2D echo with mild RV dilation and mild dysfunction. Severe pulmonary hypertension. -TPA if hemodynamically unstable DVT -Right lower extremity DVT -No history of trauma or immobility -Also history of previous CVA -Hypercoagulable workup -Antithrombin III -Protein C and S activity -Factor V Leiden mutation -Antiphospholipid antibody Elevated troponins -Due to above -Heparin drip per pharmacy dosing Hyperglycemia -No history of diabetes -Insulin sliding scale if indicated DVT GI prophylaxis -Teds SCDs -Heparin drip -Pepcid Advance diet as tolerated. Out of bed with assistance PT consult. Disposition: Transfer out of ICU tomorrow. Consult hospitalist services to assume care.
[2017-10-11] MEDS ORDERED: Potassium Phosphate Inj 30 MMOL in Sodium Chlor 0.9% Inj 250 ML IV.SIG PRN ×2 (13:17→13:19)
[2017-10-11] MEDS ORDERED: Magnesium Oxide 400 MG Tablet PO PRN ×2 (13:17→13:19)
[2017-10-11] MEDS ORDERED: Potassium Phosphate 500 MG Soluble Tablet PO PRN ×4 (13:17→13:19)
[2017-10-11] MEDS ORDERED: Potassium Chlor 40 mEq Premix 40 MEQ/100 ML PIGGYBACK IV.SIG PRN ×4 (13:17→13:19)
[2017-10-11] MEDS ORDERED: Sodium Phosphate Inj 30 MMOL in Sodium Chlor 0.9% Inj 250 ML IV.SIG PRN ×2 (13:17→13:19)
[2017-10-11] MEDS ORDERED: Potassium Chlor 20 mEq Premix 20 MEQ/100 ML PIGGYBACK IV.SIG PRN ×4 (13:17→13:19)
[2017-10-11] MEDS ORDERED: Magnesium Sulfate Inj 2 GM in Sodium Chlor 0.9% Inj 96 ML IV.SIG PRN ×2 (13:17→13:19)
[2017-10-11] MEDS ORDERED: Potassium Chloride 25 MEQ Effervescent Tablet PO PRN ×2 (13:17→13:19)
[2017-10-11] MEDS ORDERED: Magnesium Sulfate Inj 4 GM in Sodium Chlor 0.9% Inj 92 ML IV.SIG PRN ×2 (13:17→13:19)
--- NOTE | 2017-10-11 17:04 | ECG ---
Date Performed: 10/10/2017 Time Performed: 17:52:49 PTAGE: 42 years EKG: Sinus rhythm MODERATE T-WAVE ABNORMALITY, CONSIDER ANTEROLATERAL ISCHEMIA Prolonged QTc ABNORMAL ECG PREVIOUS TRACING : 03/12/2002 18.20 DOCTOR: Wally Crow Interpretating Date/Time 10/11/2017 17:03:49
--- NOTE | 2017-10-11 17:05 | ECG ---
Date Performed: 10/11/2017 Time Performed: 03:14:32 PTAGE: 42 years EKG: Sinus rhythm Prolonged corrected QT interval Extensive T wave changes are nonspecific Borderline ECG PREVIOUS TRACING : 10/10/2017 22.33 DOCTOR: Wally Crow Interpretating Date/Time 10/11/2017 17:04:18
--- NOTE | 2017-10-11 17:05 | ECG ---
Date Performed: 10/10/2017 Time Performed: 22:33:08 PTAGE: 42 years EKG: Sinus rhythm . Extensive T wave changes may be due to myocardial ischemia Prolonged QTc Abnormal ECG NO PREVIOUS TRACING DOCTOR: Wally Crow Interpretating Date/Time 10/11/2017 17:03:58
[2017-10-12] MEDS: Morphine Inj 4 MG/ML Vial IV.PUSH PRN ×3 (03:10→07:56)
[2017-10-12] MEDS ORDERED: Labetalol HCl Inj 100 MG/20 ML Vial IV.PUSH ONE ×2 (04:15)
[2017-10-12] MEDS: Chlorhexidine Gluconate 2% 1 Pack (2 Cloths) TOPICAL SCH (04:23)
--- NOTE | 2017-10-12 09:22 | P.PNIM ---
Subjective Interval history: f/u; PE/ DVT in no acute distress. still with some pain- but says that morphine helps. on oxygen via [place] d/w the RN. Physical Exam Vital signs: Vital Signs 10/11/17 10:00 10/11/17 11:00 10/11/17 11:01 Temperature Pulse Rate 84 83 80 Respiratory Rate 28 H 21 18 Blood Pressure 164/79 H 140/58 L Pulse Oximetry 91 L 92 L 92 L 10/11/17 12:00 10/11/17 13:00 10/11/17 14:00 Temperature 98.1 F Pulse Rate 79 92 H 81 Respiratory Rate 20 33 H 28 H Blood Pressure 140/74 147/84 H 132/72 Pulse Oximetry 97 94 L 93 L 10/11/17 15:00 10/11/17 15:56 10/11/17 15:57 Temperature 97.9 F Pulse Rate 79 70 Respiratory Rate 20 21 21 Blood Pressure 128/75 147/84 H Pulse Oximetry 91 L 10/11/17 16:00 10/11/17 17:00 10/11/17 17:48 Temperature Pulse Rate 76 79 81 Respiratory Rate 24 23 Blood Pressure 147/84 H 163/71 H Pulse Oximetry 96 89 L 10/11/17 18:00 10/11/17 19:00 10/11/17 20:00 Temperature 98.1 F Pulse Rate 76 75 95 H Respiratory Rate 27 H 26 H 30 H Blood Pressure 168/89 H 152/89 H 185/103 H Pulse Oximetry 99 95 96 10/11/17 20:05 10/11/17 20:57 10/11/17 22:00 Temperature Pulse Rate 84 96 H Respiratory Rate 25 H 22 Blood Pressure 177/85 H Pulse Oximetry 97 10/11/17 22:01 10/11/17 23:28 10/12/17 00:00 Temperature 98.3 F Pulse Rate 83 Respiratory Rate 20 22 Blood Pressure 143/73 H Pulse Oximetry 97 92 L 10/12/17 02:00 10/12/17 04:00 10/12/17 04:18 Temperature 98.1 F Pulse Rate 83 76 Respiratory Rate 22 22 Blood Pressure 166/69 H Pulse Oximetry 92 L Intake & Output 10/11/17 10/12/17 10/12/17 18:59 06:59 18:59 Intake Total 1500 / 1500 2029 / 2030 Output Total 750 / 750 Balance 1500 / 1500 1280 / 1280 Weight 117.3 kg 118.5 kg Intake: IV 1500 / 1500 1250 / 1250 Heparin/D5W 25,000 U/250 mL 25, 500 / 500 250 / 250 000 unit In 250 ml @ Per Protocol IV.CONT TITRATE PRN Rx #:[id number] NS Inj 1,000 ML @ 84 mls/hr IV. 1000 / 1000 1000 / 1000 CONT .[id number] [facility] Rx#:[id number] Oral 780 / 780 Output: Urine 750 / 750 Other: # Voids 3 4 # Incontinent Voids 0 Date of Last Bowel Movement 10/10/17 10/10/17 # Bowel Movements 0 0 - Constitutional no acute distress - Routine Respiratory Exam Present: CTA bilaterally - Routine Cardiovascular Exam Present: RRR - Routine Abdominal Exam Present: soft - Routine Extremities Exam Comments: edema of the right lower extremity. - Routine Neurological Exam Present: alert, oriented X3 Results - Labs CBC & Chem 7: 10/12/17 08:31 10/12/17 08:31 Assessment and Plan - Plan Pulmonary embolism -Hemodynamically stable -Comfortable on nasal cannula -O2 sats in high 90s on nasal cannula- will titrate down the oxygen. -Heparin drip -2D echo with mild RV dilation and mild dysfunction. Severe pulmonary hypertension. -dc IV Morphine and start on oral pain meds. DVT -Right lower extremity DVT -No history of trauma or immobility -Also history of previous CVA -Hypercoagulable workup -Antithrombin III -Protein C and S activity -Factor V Leiden mutation -Antiphospholipid antibody Elevated troponins -Due to above -Heparin drip per pharmacy dosing DVT GI prophylaxis -Teds SCDs -Heparin drip -Pepcid consulted PT. Discharge Planning: possible dc home tomorrow if pain is controlled on oral meds and stable off oxygen- pending PT evaluation.
[2017-10-12 09:32] LABS: Baso # (Auto) 0.1 th/mm3 (0.0-0.2); Baso % (Auto) 0.9 % (0.0-2.0); Eos # (Auto) 0.5 th/mm3 (0.0-0.4); Eos % (Auto) 4.6 % (0.0-4.0); Hematocrit 33.9 % (35.0-46.0); Hemoglobin 11.2 gm/dL (11.6-15.3); Lymph # (Auto) 2.4 th/mm3 (1.0-4.8); Lymph % (Auto) 20.2 % (9.0-44.0); Mean Corpuscular Hemoglobin 27.2 pg (27.0-34.0); Mean Corpuscular Volume 82.2 fL (80.0-100.0); Mean Platelet Volume 9.9 fL (7.0-11.0); Mono # (Auto) 0.6 th/mm3 (0.0-0.9); Mono % (Auto) 5.4 % (0.0-8.0); Neut % (Auto) 68.9 % (16.0-70.0); Platelet Count 181 th/mm3 (150-450); Red Blood Count 4.12 mil/mm3 (4.00-5.30); Red Cell Distribution Width 14.9 % (11.6-17.2); White Blood Count 11.7 th/mm3 (4.0-11.0)
[2017-10-12 09:42] LABS: Activated Partial Thrombo Time 39.2 sec (24.3-30.1); Prothrombin Time 10.6 sec (9.8-11.6)
[2017-10-12] MEDS: Senna/Docusate Sodium 8.6/50 MG Tablet PO SCH ×2 (09:54→22:04)
[2017-10-12 09:57] LABS: Albumin 3.1 g/dL (3.4-5.0); Anion Gap 10 meq/L (5-15); Aspartate Aminotransferase 11 U/L (15-37); Blood Urea Nitrogen 9 mg/dL (7-18); Carbon Dioxide 22.4 meq/L (21.0-32.0); Chloride 107 meq/L (98-107); Glomerular Filtration Rate 74 mL/min (>89); Glucose,Random 97 mg/dL (74-106); Potassium 3.9 meq/L (3.5-5.1); Sodium 139 meq/L (136-145)
[2017-10-12 09:59] LABS: Cholesterol 196 mg/dL (120-200)
[2017-10-12 10:08] LABS: Alanine Aminotransferase 22 U/L (10-53); Alkaline Phosphatase 63 U/L (45-117); Chol/HDL Ratio 4.04 Ratio; Free T4 (Free Thyroxine) 1.13 ng/dL (0.76-1.46); HDL Cholesterol 48.5 mg/dL (40.0-60.0); LDL Cholesterol,Calculated 115 mg/dL (0-99); Phosphorus 3.3 mg/dL (2.5-4.9); Total Protein 6.3 g/dL (6.4-8.2); Triglycerides 161 mg/dL (42-150)
[2017-10-12 10:21] LABS: Hemoglobin A1c 5.1 % (4.3-6.0)
[2017-10-12] MEDS: Sod Chloride 0.9% Inj 1,000 ML IV.CONT SCH (14:04)
[2017-10-12] MEDS: Heparin Drip 25,000 UNIT/250 ML BAG IV.CONT PRN (14:05)
--- NOTE | 2017-10-12 14:38 | P.PNADD ---
Addendum to Inpatient Note Reason for Addendum: Additional Documentation (was notified by the RN that the patient had vaginal bleeding earlier today. patient was seen again. she says that she was told that she had fibroid in the past. she reports irregular menstruations over the past two months. she says that she just had her period before this admission- will obtain pelvic US and consult [facility].)
--- NOTE | 2017-10-12 18:01 | US ---
EXAM DATE: 10/12/2017 5:54 PM EDT AGE/SEX: 42 years / Female INDICATIONS: Bleeding. CLINICAL DATA: This is the patient's initial encounter. Patient reports that signs and symptoms have been present for 2 weeks and indicates a pain score of 1/10. MEDICAL/SURGICAL HISTORY: . Endometriosis. . Nasal fracture. Cholecystectomy. COMPARISON: [facility], CT ABDOMEN & PELVIS W CONTRAST, 08/27/2016. . MEASUREMENTS: Uterus:__15.2 x 10.7 x 9.7 cm Endometrial Stripe:__6 mm Right Ovary:__ 6.7 x 3.1 x 5.9 cm Left Ovary:__ 5.2 x 3.7 x 4.6 cm FINDINGS: Uterus: The uterus is enlarged with multiple fibroids the largest one measures almost 7.8 cm in size . Endometrial Stripe: The endometrial stripe displays homogeneous echotexture. Right Ovary: Approximate 4.3 cm simple cyst is present. Left Ovary: Approximate 3.8 cm simple cyst is present. Fluid: No free fluid. Other: None. CONCLUSION: 1. Multiple large uterine fibroids. Electronically signed by: Vianey Myles MD 10/12/2017 6:00 PM EDT
--- NOTE | 2017-10-12 19:14 | P.CONOB ---
History of Present Illness Primary Care Physician: No Primary Care Physician History of Present Illness: 42-year-old 1 para 0 AB 1 last menstrual period 2 weeks ago who is currently admitted for treatment of pulmonary emboli/VTE. Consultation was requested due to abnormal uterine bleeding. She currently reports minimal vaginal bleeding today. [employer] SALES REPRESENTATIVE history: Patient reports that she has menstrual cycles every 28 days that last for 10 days. They are quite heavy. She reports that she was told in the past she had fibroids. Ultrasound during this admission confirmed the presence of multiple uterine fibroids up to 7.8 cm in size. She has not been on any medication to assist with her heavy menstruation since her mid 20s. She currently uses condoms for control. She reports her last Pap smear was 1 year ago and she has no history of abnormal Pap smears. - Inpatient Certification I certify that the inpatient services were ordered in accordance with Medicare regulations governing the order. This includes certification that hospital inpatient services are reasonable and necessary and in the case of services not specified as inpatient-only under 42 CFR 419.22(n), that they are appropriately provided as inpatient services in accordance to with the 2-midnight benchmark under 43 CFR 412.3(e) Estimated Total Length of Stay (Days): 5 Plans for Post Hospital Care: Not yet determined PMFSH - History History Provided By: Patient - Medical History Medical History: Medical History (Last Reviewed 10/12/17 @ 09:19 by Bonnie Villarreal) CVA (cerebral vascular accident) Endometriosis Nasal fracture - Surgical History Surgical History: Surgical History (Last Reviewed 10/12/17 @ 09:19 by Bonnie Villarreal) Hx of cholecystectomy - Tobacco History Second Hand Smoke Exposure: No Smoking Status: Never smoker - Alcohol History How Often Do You Have a Drink Containing Alcohol: Never - Substance Use History Substance History: No History of Abuse - Travel History Recent Travel in the [place] Within the Last 8 Weeks: No Recent Travel Out of the Country Within the Last 8 Weeks: No - Immunization History Tetanus Immunization: <5 Years Hx Influenza Vaccine This Season: Yes Medications and Allergies Active Medications: Active Medications Acetaminophen (Tylenol) 650 mg PO Q6H PRN PRN Reason: PAIN 1-10 AND/OR FEVER >101F Hydrocodone Bitart/Acetaminophen ([place] 5/325) 2 tab PO Q4H PRN PRN Reason: acute pain 8-10 Last Admin: 10/12/17 17:20 Dose: 2 tab Hydrocodone Bitart/Acetaminophen ([place] 5/325) 1 tab PO Q4H PRN PRN Reason: acute pain 3-7 Al Hydroxide/Mg Hydroxide (Milk Of Magnesia Liq) 30 ml PO Q12H PRN PRN Reason: Mild Constipation Albuterol (Duoneb Neb (Prn)) 1 ampul NEB Q2HR NEB PRN PRN Reason: WHEEZING Bisacodyl (Dulcolax Supp) 10 mg RECTAL DAILY PRN PRN Reason: SEVERE CONSITIPATION Chlorhexidine Gluconate (Chlorhexidine 2% Cloth) 3 pack TOPICAL DAILY@0400 [facility] [place] Stop: 10/16/17 03:59 Last Admin: 10/12/17 04:23 Dose: 3 pack Chlorhexidine Gluconate (Chlorhexidine 2% Cloth) 3 pack TOPICAL DAILY@0400 PRN PRN Reason: Extra cloth needed Stop: 10/16/17 03:59 Famotidine (Pepcid) 20 mg PO BID [facility] [place] Heparin Sodium/Dextrose (Heparin/D5w 25,000 U/250 Ml) 25,000 unit in 250 mls @ 0 mls/hr IV.CONT TITRATE PRN; Protocol PRN Reason: Per Protocol Last Admin: 10/12/17 14:05 Dose: 1,800 units/hr, 18 mls/hr Sodium Chloride (Ns Inj) 1,000 mls @ 84 mls/hr IV.CONT .[id number] [facility] [place] Last Admin: 10/12/17 14:04 Dose: 84 mls/hr Lactulose (Lactulose Liq) 30 ml PO DAILY PRN PRN Reason: SEVERE CONSITIPATION Ondansetron HCl (Zofran Odt) 4 mg PO Q6H PRN PRN Reason: NAUSEA OR VOMITING Last Admin: 10/12/17 17:20 Dose: 4 mg Senna/Docusate Sodium (Mariana-Colace) 1 tab PO BID [facility] [place] Last Admin: 10/12/17 09:54 Dose: 1 tab Sennosides (Senokot) 17.2 mg PO Q12H PRN PRN Reason: Moderate Constipation Sodium Chloride (Ns Flush) 2 ml IV.FLUSH UNSCH PRN PRN Reason: FLUSH AFTER USING IV ACCESS Sodium Chloride (Ns Flush) 2 ml IV.FLUSH PRN PRN PRN Reason: FLUSH AFTER USING IV ACCESS Sodium Chloride (Ns Flush) 2 ml IV.FLUSH BID [facility] [place] Last Admin: 10/12/17 09:53 Dose: 2 ml Allergies Allergy/AdvReac Type Severity Reaction Status Date / Time No Known Allergies Allergy Verified 10/10/17 16:17 Home Medications Medication Instructions Recorded Confirmed Type No Known Home Medications 10/10/17 10/10/17 History Exam Vital signs: Vital Signs 10/11/17 20:00 10/11/17 20:05 10/11/17 20:57 Temperature 98.1 F Pulse Rate 95 H 84 Respiratory Rate 30 H 25 H 22 Blood Pressure 185/103 H 177/85 H Pulse Oximetry 96 97 10/11/17 22:00 10/11/17 22:01 10/11/17 23:28 Temperature Pulse Rate 96 H Respiratory Rate 20 Blood Pressure Pulse Oximetry 97 10/12/17 00:00 10/12/17 02:00 10/12/17 04:00 Temperature 98.3 F 98.1 F Pulse Rate 83 83 76 Respiratory Rate 22 22 Blood Pressure 143/73 H 166/69 H Pulse Oximetry 92 L 92 L 10/12/17 04:18 10/12/17 08:00 10/12/17 10:00 Temperature Pulse Rate 87 87 Respiratory Rate 22 Blood Pressure Pulse Oximetry 10/12/17 12:00 10/12/17 14:00 10/12/17 16:00 Temperature Pulse Rate 80 80 76 Respiratory Rate Blood Pressure Pulse Oximetry Intake & Output 10/12/17 10/12/17 10/13/17 06:59 18:59 06:59 Intake Total 2030 / 2030 1250 / 1250 Output Total 750 / 750 Balance 1280 / 1280 1250 / 1250 Weight 118.5 kg Intake: IV 1250 / 1250 1250 / 1250 Heparin/D5W 25,000 U/250 mL 25, 250 / 250 250 / 250 000 unit In 250 ml @ Per Protocol IV.CONT TITRATE PRN Rx #:[id number] NS Inj 1,000 ML @ 84 mls/hr IV. 1000 / 1000 1000 / 1000 CONT .[id number] [facility] [place] Rx#:[id number] Oral 780 / 780 Output: Urine 750 / 750 Other: # Voids 4 # Incontinent Voids 0 Date of Last Bowel Movement 10/10/17 10/10/17 # Bowel Movements 0 Results - Labs CBC & Chem 7: 10/12/17 08:31 10/12/17 08:31 Labs: Laboratory Results - last 24 hr 10/12/17 10/12/17 10/12/17 08:31 08:31 08:31 WBC 11.7 H RBC 4.12 Hgb 11.2 L Hct 33.9 L MCV 82.2 MCH 27.2 MCHC 33.0 RDW 14.9 Plt Count 181 MPV 9.9 Neut % (Auto) 68.9 Lymph % (Auto) 20.2 [place] % (Auto) 5.4 Eos % (Auto) 4.6 H Baso % (Auto) 0.9 Neut # (Auto) 8.0 H Lymph # (Auto) 2.4 [place] # (Auto) 0.6 Eos # (Auto) 0.5 H Baso # (Auto) 0.1 WBC Differential . Differential Comment Auto diff final PT INR APTT Sodium 139 Potassium 3.9 Chloride 107 Carbon Dioxide 22.4 Anion Gap 10 BUN 9 Creatinine 0.85 Estimated GFR 74 L Random Glucose 97 Hemoglobin A1c 5.1 Calcium 8.0 L Phosphorus 3.3 Magnesium 2.0 Total Bilirubin 0.3 AST 11 L ALT 22 Alkaline Phosphatase 63 Total Protein 6.3 L Albumin 3.1 L Triglycerides 161 H Cholesterol 196 LDL Cholesterol, Calc 115 H HDL Cholesterol 48.5 Cholesterol/HDL Ratio 4.04 TSH 7.240 H Free T4 1.13 10/12/17 08:31 WBC RBC Hgb Hct MCV MCH MCHC RDW Plt Count MPV Neut % (Auto) Lymph % (Auto) [place] % (Auto) Eos % (Auto) Baso % (Auto) Neut # (Auto) Lymph # (Auto) [place] # (Auto) Eos # (Auto) Baso # (Auto) WBC Differential Differential Comment PT 10.6 INR 1.0 APTT 39.2 H D Sodium Potassium Chloride Carbon Dioxide Anion Gap BUN Creatinine Estimated GFR Random Glucose Hemoglobin A1c Calcium Phosphorus Magnesium Total Bilirubin AST ALT Alkaline Phosphatase Total Protein Albumin Triglycerides Cholesterol LDL Cholesterol, Calc HDL Cholesterol Cholesterol/HDL Ratio TSH Free T4 - Imaging Impressions Pelvis Ultrasound 10/12/17 00:00 CONCLUSION: 1. Multiple large uterine fibroids. Caprini VTE Risk Assessment Caprini VTE Risk Assessment: Moderate/High Risk (score >= 2) Caprini Risk Assessment Model: Point Value = 1 Point Value = 2 Point Value = 3 Point Value = 5 Age 41-60 Minor surgery BMI > 25 kg/m2 Swollen legs Varicose veins or History of unexplained or recurrent spontaneous Oral contraceptives or hormone replacement Sepsis (< 1 month) Serious lung disease, including pneumonia (< 1 month) Abnormal pulmonary function Acute myocardial infarction Congestive heart failure (< 1 month) History of inflammatory bowel disease Medical patient at bed rest Age 61-74 Arthroscopic surgery Major open surgery (> 45 min) Laparoscopic surgery (> 45 min) Malignancy Confined to bed (> 72 hours) Immobilizing plaster cast Central venous access Age >= 75 History of VTE Family history of VTE Factor V Leiden Prothrombin [id number] Lupus anticoagulant Anticardiolipin antibodies Elevated serum homocysteine Heparin-induced thrombocytopenia Other congenital or acquired thrombophilia Stroke (< 1 month) Elective arthroplasty Hip, pelvis, or leg fracture Acute spinal cord injury (< 1 month) Prophylaxis Regimen: Total Risk Factor Score Risk Level Prophylaxis Regimen 0-1 Low Early ambulation 2 Moderate Order ONE of the following: *Sequential Compression Device (SCD) *Heparin 5000 units SQ BID 3-4 Higher Order ONE of the following medications: *Heparin 5000 units SQ TID *Enoxaparin/Lovenox 40 mg SQ daily (WT < 150 kg, CrCl > 30 mL/min) *Enoxaparin/Lovenox 30 mg SQ daily (WT < 150 kg, CrCl > 10-29 mL/min) *Enoxaparin/Lovenox 30 mg SQ BID (WT < 150 kg, CrCl > 30 mL/min) AND/OR *Sequential Compression Device (SCD) 5 or more Highest Order ONE of the following medications: *Heparin 5000 units SQ TID (Preferred with Epidurals) *Enoxaparin/Lovenox 40 mg SQ daily (WT < 150 kg, CrCl > 30 mL/min) *Enoxaparin/Lovenox 30 mg SQ daily (WT < 150 kg, CrCl > 10-29 mL/min) *Enoxaparin/Lovenox 30 mg SQ BID (WT < 150 kg, CrCl > 30 mL/min) AND *Sequential Compression Device (SCD) Assessment and Plan - Plan Assessment: 42-year-old female with menorrhagia secondary to fibroid uterus now fully anticoagulated for the treatment of PE/VTE. Plan: I discussed with patient the concerns about excessive menstrual bleeding related to her fibroids now that she is anticoagulated. We reviewed different treatment options. I do not think any treatment is warranted at this time. If she should experience heavy vaginal bleeding this admission I would initiate transenamic acid 1300 mg p.o. every 8 hours for 5 days. If this is not required during this admission I would strongly recommend the patient be discharged with a prescription for this to initiate for the onset of her next scheduled menstrual period with refills adequate for the ongoing use with her menses. If this therapy is necessary this admission and proves to be unsuccessful consideration for progesterone therapy with oral or Depo-Provera would be appropriate. The use of estrogen in fully anticoagulated patients would also be a consideration if these 2 modalities proved ineffective. I would also recommend a test for this patient.
[2017-10-12] MEDS: Famotidine 20 MG Tablet PO SCH (22:04)
[2017-10-13] MEDS: Sod Chloride 0.9% Inj 1,000 ML IV.CONT SCH ×2 (00:19→13:24)
[2017-10-13] MEDS: Heparin Drip 25,000 UNIT/250 ML BAG IV.CONT PRN ×2 (04:00→19:14)
[2017-10-13] MEDS: Senna/Docusate Sodium 8.6/50 MG Tablet PO SCH ×2 (08:04→20:36)
[2017-10-13] MEDS: Famotidine 20 MG Tablet PO SCH ×2 (08:04→20:36)
--- NOTE | 2017-10-13 11:00 | P.PNIM ---
Subjective Interval history: Pt seen and examined for f/u of PE and RLE. Still requiring oxygen. Reports pain is controlled. Denies CP or SOB. Not ambulating too much. When questioned about possible hereditary coagulopathies she states her brother has had multiple heart attacks before he was 30 and is on blood thinners and her mother in her sleep unexpectedly in her 60s. Her father in his 70s from a heart attack. Regarding her vaginal bleeding, she reports it has resolved. She requests a prescription for what the [facility] recommended when she is discharged to take during her next period. Physical Exam Vital signs: Vital Signs 10/12/17 12:00 10/12/17 14:00 10/12/17 16:00 Temperature Pulse Rate 80 80 76 Respiratory Rate Blood Pressure Pulse Oximetry 10/12/17 19:42 10/12/17 20:00 10/13/17 00:00 Temperature 98.0 F 97.3 F L Pulse Rate 80 76 76 Respiratory Rate 20 18 Blood Pressure 117/65 149/82 H Pulse Oximetry 94 L 97 10/13/17 04:00 10/13/17 08:00 Temperature 97.5 F L 97.4 F L Pulse Rate 79 81 Respiratory Rate 18 17 Blood Pressure 131/59 L 134/77 Pulse Oximetry 95 93 L Intake & Output 10/12/17 10/13/17 10/13/17 18:59 06:59 18:59 Intake Total 1250 / 1250 1730 / 1730 Output Total 1000 / 1000 Balance 1250 / 1250 730 / 730 Weight 115.8 kg Intake: IV 1250 / 1250 1250 / 1250 Heparin/D5W 25,000 U/250 mL 25, 250 / 250 250 / 250 000 unit In 250 ml @ Per Protocol IV.CONT TITRATE PRN Rx #:[id number] NS Inj 1,000 ML @ 84 mls/hr IV. 1000 / 1000 1000 / 1000 CONT .[id number] [facility] Rx#:[id number] Oral 480 / 480 Output: Urine 1000 / 1000 Other: Date of Last Bowel Movement 10/10/17 # Bowel Movements 0 Narrative: GENERAL: Obese female resting in bed in NAD. SKIN: Warm and dry. HEENT: AT/NC. Pupils equal and round. MMM. NECK: Supple no tender LAD or JVD. HEART: RRR no m/r/g. LUNGS: CTAB without wheezes or crackles. ABDOMEN: +BS, soft, NT, ND. EXTREMITIES: No LE edema. Calves supple. No erythema, warmth, swelling, or palpable cords. NEURO: Awake and alert. Nonfocal. PSYCH: Appropriate mood and affect. Results - Labs CBC & Chem 7: 10/13/17 12:13 10/12/17 08:31 Laboratory Results - last 24 hr 10/12/17 10/12/17 10/13/17 08:31 08:31 00:13 APTT 48.3 H D Thrombin Time Cancelled Lupus Anticoagulant Cancelled LA PTT Screen Cancelled dRVVT Screen Cancelled LA dRVVT Confirm Cancelled dRVVT Mix Cancelled Hexagonal Phase Confirm Cancelled Hemoglobin A1c 5.1 Beta-2-GPI IgG Ab Cancelled Beta-2-GPI IgA Ab Cancelled Beta-2-GPI IgM Ab Cancelled Anti-Cardiolipin IgG Ab Cancelled Anti-Cardiolipin IgM Ab Cancelled - Imaging Impressions Pelvis Ultrasound 10/12/17 00:00 CONCLUSION: 1. Multiple large uterine fibroids. Assessment and Plan - Plan 42 YOWF with history of CVA admitted on 10/10 for RLE DVT and PE. 1. PE - CTA on admission with b/l emboli more prominent on the right - Remains hemodynamically stable - On heparin gtt - Start oral anticoagulation in next 1-2 days when ready for discharge - Supplemental O2, still requiring 3-4 L. Desats to 86% on room air - 2D echo with mild RV dilation and mild dysfunction and severe pulmonary hypertension - [place] PRN 2. RLE DVT, unprovoked - Anticoagulation as above - With history of previous CVA at a young age, hypercoag work-up initiated ( pending) - Antithrombin III, protein C and S activity, factor V Leiden mutation, and antiphospholipid antibody pending 3. Vaginal bleeding - Resolved - [facility] evaluated patient yesterday, recommend on d/c a script for transenamic acid 1300 mg PO Q8H x 5 days to take at the onset of her next period - She should ideally f/u with [facility] as outpatient DVT prophylaxis: Heparin gtt Discharge Planning: Still requiring up to 3L O2, not quite ready for d/c yet
[2017-10-13 12:32] LABS: Hematocrit 31.7 % (35.0-46.0); Hemoglobin 10.3 gm/dL (11.6-15.3)
[2017-10-14] MEDS: Sod Chloride 0.9% Inj 1,000 ML IV.CONT SCH (02:13)
[2017-10-14] MEDS: Chlorhexidine Gluconate 2% 1 Pack (2 Cloths) TOPICAL SCH (03:23)
[2017-10-14] MEDS: Famotidine 20 MG Tablet PO SCH ×2 (09:26→20:29)
[2017-10-14] MEDS: Senna/Docusate Sodium 8.6/50 MG Tablet PO SCH ×2 (09:26→20:29)
[2017-10-14] MEDS: Heparin Drip 25,000 UNIT/250 ML BAG IV.CONT PRN ×2 (09:28→23:16)
--- NOTE | 2017-10-14 17:21 | P.PN ---
Subjective Interval history: Patient reports being pain-free in her lower extremity, she still has dyspnea with exertion and still requires oxygen at this time though less than before. Physical Exam Vital signs: Vital Signs 10/13/17 20:00 10/13/17 23:30 10/14/17 00:00 Temperature 97.3 F L 97.5 F L Pulse Rate 100 H 78 Respiratory Rate 18 20 18 Blood Pressure 109/59 L 105/53 L Pulse Oximetry 98 93 L 10/14/17 03:22 10/14/17 04:00 10/14/17 04:56 Temperature 97.5 F L Pulse Rate 90 Respiratory Rate 20 16 20 Blood Pressure 106/58 L Pulse Oximetry 95 10/14/17 08:00 10/14/17 12:00 10/14/17 16:00 Temperature 97.9 F 98.2 F Pulse Rate 79 90 Respiratory Rate 20 20 Blood Pressure 103/58 L 120/69 Pulse Oximetry 94 L 92 L 97 10/14/17 17:02 Temperature Pulse Rate Respiratory Rate Blood Pressure Pulse Oximetry 97 Intake & Output 10/13/17 10/14/17 10/14/17 18:59 06:59 18:59 Intake Total 1969 / 1969 1240 / 1240 250 / 250 Output Total 800 / 800 Balance 1170 / 1170 1240 / 1240 250 / 250 Weight 117.5 kg Intake: IV 1250 / 1250 1000 / 1000 250 / 250 Heparin/D5W 25,000 U/250 mL 25, 250 / 250 250 / 250 000 unit In 250 ml @ Per Protocol IV.CONT TITRATE PRN Rx #:[id number] NS Inj 1,000 ML @ 84 mls/hr IV. 1000 / 1000 1000 / 1000 CONT .[id number] [facility] Rx#:[id number] Oral 720 / 720 240 / 240 Output: Urine 800 / 800 Other: # Voids 1 Date of Last Bowel Movement 10/12/17 10/12/17 # Bowel Movements 0 Narrative: GENERAL: AAOx3, no acute distress, obese SKIN: Warm and dry. No rashes HEAD: Atruamtic, normocephalic. EYES: No scleral icterus. No injection or drainage. ENT: Moist mucous membranes, patent nares, no erythema of oropharynx. NECK: Supple, trachea midline. No JVD or lymphadenopathy. Normal thyroid. CARDIOVASCULAR: Regular rate and rhythm. No murmurs, gallops, or rubs. RESPIRATORY: Breath sounds clear equal bilaterally. No crackles or wheezes. No accessory muscle use. GASTROINTESTINAL: Abdomen soft, non-tender, nondistended, normal active bowel sounds MUSCULOSKELETAL: No cyanosis, or edema. NEURO: CN II-XII grossly intact, no focal deficits, no slurring of speech Results - Labs CBC & Chem 7: 10/13/17 12:13 10/12/17 08:31 Laboratory Results - last 24 hr 10/14/17 08:00 APTT 42.3 H Assessment and Plan - Plan 42F with history of CVA admitted on 10/10 for RLE DVT and PE. PE with RLE DVT CTA on admission with b/l emboli more prominent on the right RLE DVT confirmed by ultrasound Antithrombin III, protein C and S activity, factor V Leiden mutation, and antiphospholipid antibody pending Continue heparin drip Continue to wean from supplemental oxygen, walk test tomorrow Will bridge to oral anticoagulants on discharge, will provide coupons and blue card Continue as needed [place] Menometrorrhagia Probably exacerbated by heparin drip She should ideally f/u with [facility] as outpatient DVT prophylaxis Heparin gtt
[2017-10-15] MEDS: Senna/Docusate Sodium 8.6/50 MG Tablet PO SCH ×2 (08:47→21:02)
[2017-10-15] MEDS: Famotidine 20 MG Tablet PO SCH ×2 (08:47→21:02)
[2017-10-15] MEDS: Heparin Drip 25,000 UNIT/250 ML BAG IV.CONT PRN (13:47)
--- NOTE | 2017-10-15 15:49 | P.PN ---
Subjective Interval history: Patient complains today of pelvic pain, she feels like it is a urinary tract infection. She states she is breathing more comfortably, I encouraged her to spend time off the oxygen and attempt ambulation. Physical Exam Vital signs: Vital Signs 10/14/17 16:00 10/14/17 17:02 10/14/17 17:44 Temperature 98.2 F Pulse Rate 91 H Respiratory Rate 20 18 Blood Pressure 96/53 L Pulse Oximetry 91 L 97 10/14/17 20:00 10/15/17 00:00 10/15/17 04:00 Temperature 97.9 F 98.3 F 98.0 F Pulse Rate 98 H 100 H 104 H Respiratory Rate 18 18 20 Blood Pressure 154/72 H 103/62 127/74 Pulse Oximetry 94 L 94 L 90 L 10/15/17 08:00 10/15/17 12:00 Temperature 97.5 F L 97.5 F L Pulse Rate 86 78 Respiratory Rate 20 20 Blood Pressure 100/53 L 105/57 L Pulse Oximetry 94 L 92 L Intake & Output 10/14/17 10/15/17 10/15/17 18:59 06:59 18:59 Intake Total 1210 / 1210 730 / 730 250 / 250 Output Total 2750 / 2750 1800 / 1800 Balance -1540 / -1540 -1070 / -1070 250 / 250 Weight 115.9 kg Intake: IV 250 / 250 250 / 250 250 / 250 Heparin/D5W 25,000 U/250 mL 25, 250 / 250 250 / 250 250 / 250 000 unit In 250 ml @ Per Protocol IV.CONT TITRATE PRN Rx #:[id number] Oral 960 / 960 480 / 480 Output: Urine 2750 / 2750 1800 / 1800 Other: Date of Last Bowel Movement 10/12/17 10/12/17 10/12/17 # Bowel Movements 0 0 Narrative: GENERAL: AAOx3, no acute distress, obese SKIN: Warm and dry. No rashes HEAD: Atruamtic, normocephalic. EYES: No scleral icterus. No injection or drainage. ENT: Moist mucous membranes, patent nares, no erythema of oropharynx. NECK: Supple, trachea midline. No JVD or lymphadenopathy. Normal thyroid. CARDIOVASCULAR: Regular rate and rhythm. No murmurs, gallops, or rubs. RESPIRATORY: Breath sounds clear equal bilaterally. No crackles or wheezes. No accessory muscle use. GASTROINTESTINAL: Abdomen soft, non-tender, nondistended, normal active bowel sounds MUSCULOSKELETAL: No cyanosis, or edema. NEURO: CN II-XII grossly intact, no focal deficits, no slurring of speech Results - Labs CBC & Chem 7: 10/13/17 12:13 10/12/17 08:31 Laboratory Results - last 24 hr 10/11/17 10/11/17 04:50 04:50 Thrombin Time ND Lupus Anticoagulant Lupus Anticoag aPTT 91.0 H Dil Jadon Viper Venom 36.0 dRVVT Confirm Interp ND dRVVT Mix Pat/Norm 1:1 ND dRVVT Mix Interpret ND Hexagonal Phase Confirm Negative Antithrombin III Activ 82 Assessment and Plan - Plan 42F with history of CVA admitted on 10/10 for RLE DVT and PE. PE with RLE DVT CTA on admission with b/l emboli more prominent on the right RLE DVT confirmed by ultrasound Antithrombin III, protein C and S activity, factor V Leiden mutation, and antiphospholipid antibody pending Continue heparin drip Continue to wean from supplemental oxygen Will bridge to oral anticoagulants on discharge, will provide coupons and blue card Continue as needed [place] Abdominal pain Seems like cystitis Check urinalysis Menometrorrhagia Probably exacerbated by heparin drip She should ideally f/u with [facility] as outpatient DVT prophylaxis Heparin gtt
[2017-10-15 17:53] LABS: Homocysteine (Cardiovascular) 5.7 umol/L (<10.4)
[2017-10-15 18:09] LABS: Bacteria,Urine Moderate /hpf; Bilirubin,Urine Negative (Negative); Clarity,Urine Hazy (Clear); Color,Urine Yellow (Yellw/Straw); Glucose,Urine (UA) Negative (Negative); Leukocyte Esterase,Urine Trace (Negative); Mucus,Urine Few /lpf (Occasional); Nitrite,Urine Negative (Negative); Specific Gravity,Urine 1.006 (1.002-1.035); Squamous Epithelial Cell,Urine 2 /hpf (0-5)
[2017-10-15 19:55] LABS: Factor V Leiden Mutation Negative (Negative); Protein C Functional 103 % (70 - 150)
[2017-10-16] MEDS: Heparin Drip 25,000 UNIT/250 ML BAG IV.CONT PRN ×2 (00:49→13:04)
[2017-10-16] MEDS: Levothyroxine 75 MCG Tablet PO SCH (06:55)
[2017-10-16] MEDS: Famotidine 20 MG Tablet PO SCH ×2 (09:06→21:48)
[2017-10-16] MEDS: Senna/Docusate Sodium 8.6/50 MG Tablet PO SCH ×2 (09:06→21:48)
--- NOTE | 2017-10-16 17:29 | P.PN ---
Subjective Interval history: 42-year-old female admitted for DVT and pulmonary embolism. She had pelvic pain which turned out to be urinary tract infection, treatment is started. She failed her oxygen walk test, 85% with simple basic ambulation around bed. She has no coverage to pay for oxygen. Physical Exam Vital signs: Vital Signs 10/15/17 17:30 10/15/17 20:00 10/16/17 00:00 Temperature 97.2 F L 97.8 F Pulse Rate 93 H 84 Respiratory Rate 20 18 Blood Pressure 113/76 110/53 L Pulse Oximetry 92 L 93 L 95 Pulse Oximetry [Resting on Room Air] Pulse Oximetry [Resting with Oxygen] 10/16/17 04:00 10/16/17 04:17 10/16/17 08:36 Temperature 97.8 F Pulse Rate 86 82 Respiratory Rate 18 Blood Pressure 104/60 Pulse Oximetry 92 L 95 Pulse Oximetry [Resting on Room Air] 85 L Pulse Oximetry [Resting with Oxygen] 95 Intake & Output 10/15/17 10/16/17 10/16/17 18:59 06:59 18:59 Intake Total 970 / 970 370 / 370 250 / 250 Output Total 2300 / 2300 Balance 970 / 970 -1930 / -1930 250 / 250 Weight 115.3 kg Intake: IV 250 / 250 250 / 250 250 / 250 Heparin/D5W 25,000 U/250 mL 25, 250 / 250 250 / 250 250 / 250 000 unit In 250 ml @ Per Protocol IV.CONT TITRATE PRN Rx #:[id number] Oral 720 / 720 120 / 120 Output: Urine 2300 / 2300 Urine/Stool Mix 0 / 0 Other: # Voids 5 Date of Last Bowel Movement 10/12/17 # Bowel Movements 0 Narrative: GENERAL: AAOx3, no acute distress, obese SKIN: Warm and dry. No rashes HEAD: Atruamtic, normocephalic. EYES: No scleral icterus. No injection or drainage. ENT: Moist mucous membranes, patent nares, no erythema of oropharynx. NECK: Supple, trachea midline. No JVD or lymphadenopathy. Normal thyroid. CARDIOVASCULAR: Regular rate and rhythm. No murmurs, gallops, or rubs. RESPIRATORY: Breath sounds clear equal bilaterally. No crackles or wheezes. No accessory muscle use. GASTROINTESTINAL: Abdomen soft, non-tender, nondistended, normal active bowel sounds MUSCULOSKELETAL: No cyanosis, or edema. NEURO: CN II-XII grossly intact, no focal deficits, no slurring of speech Results - Labs CBC & Chem 7: 10/13/17 12:13 10/12/17 08:31 Laboratory Results - last 24 hr 10/11/17 10/12/17 10/12/17 04:50 08:31 08:31 APTT Thrombin Time Cancelled Lupus Anticoagulant Cancelled LA PTT Screen Cancelled dRVVT Screen Cancelled LA dRVVT Confirm Cancelled dRVVT Mix Cancelled Hexagonal Phase Confirm Cancelled Protein C Activity 103 Protein S Activity 103 Factor V Leiden Mutat Negative Factor V Leiden Interp . Fact V Leiden Review By Crystal ramirez m.d. Factor VIII Activity 115 Homocysteine Cardiovas 5.7 Urine Color Urine Clarity Urine pH Ur Specific [place] Urine Protein Urine Glucose (UA) Urine Ketones Urine Occult Blood Urine Nitrate Urine Bilirubin Urine Urobilinogen Ur Leukocyte Esterase Urine RBC Urine WBC Ur Squamous Epith Cells Urine Bacteria Urine Mucus Micro UA Comment Urine Culture Comments Beta-2-GPI IgG Ab Less than 9.0 Cancelled Beta-2-GPI IgA Ab Less than 9.0 Cancelled Beta-2-GPI IgM Ab Less than 9.0 Cancelled Phosphatidylserine IgG Less than 10.0 Phosphatidylserine IgA Less than 20.0 Phosphatidylserine IgM Less than 25.0 Anti-Cardiolipin IgG Ab Less than 14.0 Cancelled Anti-Cardiolipin IgA Ab Less than 11.0 Anti-Cardiolipin IgM Ab Less than 12.0 Cancelled Prothrombin [id number] Mut 10/15/17 10/15/17 10/15/17 15:55 17:12 23:11 APTT 31.0 H D 40.3 H D Thrombin Time Lupus Anticoagulant LA PTT Screen dRVVT Screen LA dRVVT Confirm dRVVT Mix Hexagonal Phase Confirm Protein C Activity Protein S Activity Factor V Leiden Mutat Factor V Leiden Interp Fact V Leiden Review By Factor VIII Activity Homocysteine Cardiovas Urine Color Yellow Urine Clarity Hazy H Urine pH 6.0 Ur Specific [place] 1.006 Urine Protein Negative Urine Glucose (UA) Negative Urine Ketones Negative Urine Occult Blood Large H Urine Nitrate Negative Urine Bilirubin Negative Urine Urobilinogen Less than 2 Ur Leukocyte Esterase Trace H Urine RBC 5 H Urine WBC 15 H Ur Squamous Epith Cells 2 Urine Bacteria Moderate H Urine Mucus Few H Micro UA Comment Culture indicated Urine Culture Comments Culture indicated Beta-2-GPI IgG Ab Beta-2-GPI IgA Ab Beta-2-GPI IgM Ab Phosphatidylserine IgG Phosphatidylserine IgA Phosphatidylserine IgM Anti-Cardiolipin IgG Ab Anti-Cardiolipin IgA Ab Anti-Cardiolipin IgM Ab Prothrombin [id number] Mut 10/16/17 08:59 APTT 34.8 H Thrombin Time Lupus Anticoagulant LA PTT Screen dRVVT Screen LA dRVVT Confirm dRVVT Mix Hexagonal Phase Confirm Protein C Activity Protein S Activity Factor V Leiden Mutat Factor V Leiden Interp Fact V Leiden Review By Factor VIII Activity Homocysteine Cardiovas Urine Color Urine Clarity Urine pH Ur Specific [place] Urine Protein Urine Glucose (UA) Urine Ketones Urine Occult Blood Urine Nitrate Urine Bilirubin Urine Urobilinogen Ur Leukocyte Esterase Urine RBC Urine WBC Ur Squamous Epith Cells Urine Bacteria Urine Mucus Micro UA Comment Urine Culture Comments Beta-2-GPI IgG Ab Beta-2-GPI IgA Ab Beta-2-GPI IgM Ab Phosphatidylserine IgG Phosphatidylserine IgA Phosphatidylserine IgM Anti-Cardiolipin IgG Ab Anti-Cardiolipin IgA Ab Anti-Cardiolipin IgM Ab Prothrombin [id number] Mut Microbiology 10/15/17 17:12 Clean Catch Urine Urine Culture - Preliminary gram negative rods Assessment and Plan - Plan 42F with history of CVA admitted on 10/10 for RLE DVT and PE. PE with RLE DVT CTA on admission with b/l emboli more prominent on the right RLE DVT confirmed by ultrasound Antithrombin III, protein C and S activity, factor V Leiden mutation, and antiphospholipid antibody pending Patient failed oxygen walk test, 85% with short ambulation Will bridge to oral anticoagulants on discharge, will provide coupons and blue card Continue heparin drip while hospitalized Continue as needed [place] Urinary tract infection Rocephin IV started, Pyridium for pain Follow urine cultures Menometrorrhagia Probably exacerbated by heparin drip She should ideally f/u with [facility] [employer]EL[employer]CH[employer] as outpatient DVT prophylaxis Heparin gtt Discharge planning Failure of oxygen walk test, 85% with simple ambulation, no insurance coverage
[2017-10-17] MEDS: Heparin Drip 25,000 UNIT/250 ML BAG IV.CONT PRN ×2 (01:04→13:33)
[2017-10-17] MEDS: Sod Chloride 0.9% Inj 1,000 ML IV.CONT SCH (04:34)
[2017-10-17] MEDS: Levothyroxine 75 MCG Tablet PO SCH (05:52)
[2017-10-17 09:52] VITALS: RESP 20
[2017-10-17] MEDS: Senna/Docusate Sodium 8.6/50 MG Tablet PO SCH ×2 (11:38→20:33)
[2017-10-17] MEDS: Famotidine 20 MG Tablet PO SCH ×2 (11:38→20:33)
--- NOTE | 2017-10-17 15:35 | P.PN ---
Subjective Interval history: Patient failed oxygen walk test yesterday, but she has remove the oxygen herself today and is apparently comfortable at rest off oxygen. She states her dysuria and lower abdominal pain from urinary tract infection is improving. Physical Exam Vital signs: Vital Signs 10/16/17 16:00 10/16/17 20:00 10/17/17 00:00 Temperature 97.4 F L 97.2 F L 97.9 F Pulse Rate 72 91 H 85 Respiratory Rate 16 18 18 Blood Pressure 143/79 H 137/63 126/80 Pulse Oximetry 97 98 92 L 10/17/17 04:00 10/17/17 08:00 10/17/17 10:55 Temperature 97.8 F 98.0 F Pulse Rate 100 H 68 Respiratory Rate 18 20 Blood Pressure 115/59 L 114/56 L Pulse Oximetry 95 85 L 94 L 10/17/17 12:00 Temperature 98.5 F Pulse Rate 67 Respiratory Rate 20 Blood Pressure 139/78 Pulse Oximetry 95 Intake & Output 10/16/17 10/17/17 10/17/17 18:59 06:59 18:59 Intake Total 1210 / 1210 1370 / 1370 250 / 250 Output Total 700 / 700 2049 / 0 Balance 510 / 510 -680 / -680 250 / 250 Weight 116.3 kg Intake: IV 250 / 250 1250 / 1250 250 / 250 Heparin/D5W 25,000 U/250 mL 25, 250 / 250 250 / 250 250 / 250 000 unit In 250 ml @ Per Protocol IV.CONT TITRATE PRN Rx #:[id number] NS Inj 1,000 ML @ 84 mls/hr IV. 1000 / 1000 CONT .[id number] [facility] Rx#:[id number] Oral 960 / 960 120 / 120 Output: Urine 700 / 700 2049 / 2049 Other: Date of Last Bowel Movement 10/12/17 10/12/17 # Bowel Movements 0 0 Narrative: GENERAL: AAOx3, no acute distress, obese SKIN: Warm and dry. No rashes HEAD: Atruamtic, normocephalic. EYES: No scleral icterus. No injection or drainage. ENT: Moist mucous membranes, patent nares, no erythema of oropharynx. NECK: Supple, trachea midline. No JVD or lymphadenopathy. Normal thyroid. CARDIOVASCULAR: Regular rate and rhythm. No murmurs, gallops, or rubs. RESPIRATORY: Breath sounds clear equal bilaterally. No crackles or wheezes. No accessory muscle use. GASTROINTESTINAL: Abdomen soft, non-tender, nondistended, normal active bowel sounds MUSCULOSKELETAL: No cyanosis, or edema. NEURO: CN II-XII grossly intact, no focal deficits, no slurring of speech Results - Labs CBC & Chem 7: 10/13/17 12:13 10/12/17 08:31 Laboratory Results - last 24 hr 10/12/17 10/16/17 10/17/17 08:31 22:02 00:19 APTT Cancelled 37.6 H MTHFR Mutation Detect Prothrombin [id number] Mut 10/17/17 07:19 APTT 43.9 H MTHFR Mutation Detect Prothrombin [id number] Mut Microbiology 10/15/17 17:12 Clean Catch Urine Urine Culture - Final Escherichia coli Assessment and Plan - Plan 42F with history of CVA admitted on 10/10 for RLE DVT and PE. PE with RLE DVT CTA on admission with b/l emboli more prominent on the right RLE DVT confirmed by ultrasound Antithrombin III, protein C and S activity, factor V Leiden mutation, and antiphospholipid antibody pending Patient failed oxygen walk test, 85% with short ambulation, off of oxygen today , will repeat test Will bridge to oral anticoagulants on discharge, will provide coupons and blue card Continue heparin drip while hospitalized Continue as needed [place] Urinary tract infection Rocephin IV started, Pyridium for pain Follow urine cultures Menometrorrhagia Probably exacerbated by heparin drip She should ideally f/u with [employer]OR as outpatient DVT prophylaxis Heparin gtt Discharge planning Failure of oxygen walk test, 85% yesterday, will repeat test today Patient has no insurance for coverage of oxygen
[2017-10-18] MEDS: Heparin Drip 25,000 UNIT/250 ML BAG IV.CONT PRN ×2 (01:43→14:11)
[2017-10-18] MEDS: Levothyroxine 75 MCG Tablet PO SCH (05:09)
[2017-10-18] MEDS: Sod Chloride 0.9% Inj 1,000 ML IV.CONT SCH (05:13)
[2017-10-18] MEDS: Senna/Docusate Sodium 8.6/50 MG Tablet PO SCH (09:34)
[2017-10-18] MEDS: Famotidine 20 MG Tablet PO SCH (09:34)
--- NOTE | 2017-10-18 15:36 | P.DS ---
Date of admission: 10/10/17 19:32 Primary care physician: No Primary Care Physician Brief History from admission: 42-year-old 1 para 0 AB 1 last menstrual period 2 weeks ago who is currently admitted for treatment of pulmonary emboli/VTE. Consultation was requested due to abnormal uterine bleeding. She currently reports minimal vaginal bleeding today. SETTLEMENT CLERK history: Patient reports that she has menstrual cycles every 28 days that last for 10 days. They are quite heavy. She reports that she was told in the past she had fibroids. Ultrasound during this admission confirmed the presence of multiple uterine fibroids up to 7.8 cm in size. She has not been on any medication to assist with her heavy menstruation since her mid 20s. She currently uses condoms for control. She reports her last Pap smear was 1 year ago and she has no history of abnormal Pap smears. DS: Medications - Discharge Medications Prescriptions: apixaban [Eliquis] 5 mg PO BID 30 Days #60 tab levothyroxine [Synthroid] 75 mcg PO DAILY@0600 #30 tab sulfamethoxazole-trimethoprim [Bactrim DS] 2 tab PO Q12H 5 Days #10 tab DS: Summary Hospital Course: Mrs. Meredith is a 42-year-old female. She was admitted here secondary to shortness of breath. In the ER she was found to have a pulmonary embolism and a DVT. She was treated with heparin while here. Through time she has had resolution of her hypoxia and she is doing well today on room air including exertion on room air. While here she was discovered to have hypothyroidism. Synthroid has been started. She is also taking an antibiotic for UTI. Blood thinners at this time I transition over to Eliquis. Bactrim will be provided for UTI at discharge. Synthroid will be continued as an outpatient. Medically clear and stable for discharge home today on these treatments. - Time Spent with Patient Total time spent providing and/or coordinating discharge services: Less than 30 minutes - Quality: VTE Deep Vein Thrombosis/Pulmonary Embolism Present on Admission: Yes Exam Vital signs: Vital Signs 10/17/17 16:00 10/17/17 17:14 10/17/17 20:00 Temperature 97.9 F 97.5 F L Pulse Rate 75 97 H Respiratory Rate 20 18 Blood Pressure 136/77 170/81 H Pulse Oximetry 88 L 99 Pulse Oximetry [Resting on Room Air] 87 L Pulse Oximetry [Resting with Oxygen] 95 08/03/18 23:45 10/17/17 23:50 10/18/17 00:00 Temperature 97.5 F L Pulse Rate 85 52 L Respiratory Rate 18 Blood Pressure 126/67 Pulse Oximetry 95 96 Pulse Oximetry [Resting on Room Air] Pulse Oximetry [Resting with Oxygen] 10/18/17 03:50 10/18/17 04:00 10/18/17 08:00 Temperature 97.4 F L 97.5 F L Pulse Rate 69 71 52 L Respiratory Rate 19 18 Blood Pressure 121/71 145/75 H Pulse Oximetry 94 L 96 Pulse Oximetry [Resting on Room Air] Pulse Oximetry [Resting with Oxygen] 10/18/17 12:00 Temperature 97.2 F L Pulse Rate 66 Respiratory Rate 20 Blood Pressure 126/62 Pulse Oximetry 98 Pulse Oximetry [Resting on Room Air] Pulse Oximetry [Resting with Oxygen] Intake & Output 10/17/17 10/18/17 10/18/17 18:59 06:59 18:59 Intake Total 1710 / 1710 490 / 490 250 / 250 Balance 1710 / 1710 490 / 490 250 / 250 Weight 117.1 kg Intake: IV 1350 / 1350 250 / 250 250 / 250 Heparin/D5W 25,000 U/250 mL 25, 250 / 250 250 / 250 250 / 250 000 unit In 250 ml @ Per Protocol IV.CONT TITRATE PRN Rx #:[id number] NS Inj 1,000 ML @ 84 mls/hr IV. 1000 / 1000 CONT .[id number] [facility] Rx#:[id number] Rocephin Inj 1,000 MG In NS Inj 100 / 100 100 ML @ 200 mls/hr IV.SIG Q24H [facility] Rx#:[id number] Oral 360 / 360 240 / 240 Other: # Voids 5 2 Date of Last Bowel Movement 10/12/17 10/18/17 # Bowel Movements 1 1 Results Procedures completed during hospitalization: none Labs on day of discharge: Labs from last 24 hours 10/18/17 12:20 APTT 43.0 H - Impressions ITS Impressions Chest CTA 10/10/17 17:46 CONCLUSION: Bilateral pulmonary emboli being more prominent on the right. Chest X-Ray 10/10/17 17:46 CONCLUSION: No acute cardiopulmonary process Venous Doppler Study 10/10/17 19:24 CONCLUSION: 1. Nearly occlusive thrombus in the right popliteal and posterior tibial veins. 2. No DVT seen on the left side. Pelvis Ultrasound 10/12/17 00:00 CONCLUSION: 1. Multiple large uterine fibroids. Discharge Plan - Discharge Disposition Patient Disposition: Discharge Home - Discharge Condition Condition: Stable - Discharge Order Discharge Orders: Discharge Order (Routine); Ordered 10/18/17 Ordered By: Mingo Parikh - Discharge Details Anticipated Discharge Date: 10/18/17 - Physicians Team Primary Care Provider: Primary Care Everardoi,Adrienne Attending Provider: Mingo Parikh Other Providers: Mark Kat MD
[2017-10-21 17:55] VITALS: O2SAT 98
[2017-10-21 18:13] VITALS: BP 126/62; PULSE 66; TEMP 97.2
== END 2017-10-18 17:18 | disposition home or self-care (01) ==
LOC: PHED 16:07 → PHEDA 19:32 → HIMC 20:45 → N04 10-12 05:57
PROVIDERS: ADMIT Hospitalist; ATTEND Hospitalist